=== PATIENT | female | born 1995 | race Caucasian/White ===

== ENCOUNTER → 2017-08-20 09:14 | Outpatient (CLI) | payer BC, SELFPAY ==
[2017-08-20 10:12] LABS: Hemoglobin A1c 4.7 % (4.2-6.3)
[2017-08-20 10:23] LABS: hCG Titer Quant., Serum < 1 mIU/mL (<9 non-preg)
[2017-08-20 10:27] LABS: Estradiol 56.2 pg/mL; Free T3 2.9 pg/mL (2.18-3.98); T4 Free Direct 0.94 ng/dL (0.76-1.46); Thyroid Stim Hormone (TSH) 1.98 uIU/mL (0.358-3.74)
[2017-08-21 10:38] LABS: Progesterone Level 0.57 ng/mL (See Comment)
== END ==
PROVIDERS: Visit Provider Obstetrics & Gynecology
DX: N92.5 Other specified irregular menstruation (principal)
CPT/HCPCS: 36415; 82670; 83036; 84144; 84403; 84439; 84443; 84481; 84702

== ENCOUNTER → 2017-09-11 14:14 | Outpatient (CLI) | payer BC, SELFPAY ==
[2017-09-11 15:46] LABS: hCG Titer Quant., Serum < 1 mIU/mL (<9 non-preg)
== END ==
PROVIDERS: Visit Provider Obstetrics & Gynecology
DX: N92.5 Other specified irregular menstruation (principal)
CPT/HCPCS: 36415; 84702

== ENCOUNTER → 2018-04-02 11:13 | Outpatient (CLI) | payer BC, SELFPAY ==
[2018-04-02 17:11] LABS: hCG Titer Quant., Serum 9770 mIU/mL (<9 non-preg)
== END ==
PROVIDERS: Visit Provider Obstetrics & Gynecology
DX: O20.0 Threatened abortion (principal); Z3A.00 Weeks of gestation of pregnancy not specified
CPT/HCPCS: 36415; 84702

== ENCOUNTER → 2018-06-28 11:33 | Outpatient (CLI) | payer BC, SELFPAY ==
[2018-06-28 13:45] LABS: hCG Titer Quant., Serum 2667 mIU/mL (<9 non-preg)
[2018-06-28 17:30] LABS: Chlamydia Trachomatis by PCR Negative (Negative); Neisserai gonorrhoeae by PCR Negative (Negative); Probe Check PASS; Sample Adequacy Control PASS; Specimen Processing Control PASS
[2018-07-01 08:00] LABS: HPV Reflexed? NOT INDICATED
== END ==
PROVIDERS: Visit Provider Obstetrics & Gynecology
DX: Z12.4 Encounter for screening for malignant neoplasm of cervix (principal); Z11.3 Encounter for screening for infections with a predominantly sexual mode of transmission
CPT/HCPCS: 36415; 84702; 84703; 87491; 87591; 88175; G0145

== ENCOUNTER → 2018-06-30 10:48 | Outpatient (CLI) | payer BC, SELFPAY ==
[2018-06-30 14:26] LABS: hCG Titer Quant., Serum 6042 mIU/mL (<9 non-preg)
== END ==
PROVIDERS: Visit Provider Obstetrics & Gynecology
DX: Z34.90 Encounter for supervision of normal pregnancy, unspecified, unspecified trimester (principal)
CPT/HCPCS: 36415; 84702

== ENCOUNTER → 2018-07-12 13:27 | Outpatient (CLI) | payer BC, MEDICAID, SELFPAY ==
[2018-07-12 13:46] VITALS: BP 115/66; PULSE 73; RESP 16; TEMP 36.8; O2SAT 99; BMI 25.9
== END ==
PROVIDERS: Visit Provider Obstetrics & Gynecology
DX: R11.10 Vomiting, unspecified (principal)
CPT/HCPCS: 96365; 96366 ×2; A4216

== ENCOUNTER → 2018-07-19 14:42 | Outpatient (CLI) | payer BC, SELFPAY ==
[2018-07-12 13:46] VITALS: BMI 25.9
[2018-07-19 16:55] LABS: Absolute Neutrophil Count 9.1 X10^3/uL (2.0-7.7); Basophil# 0.01 X10^3/uL; Basophil% 0.1 % (0-1); Eosinophil# 0.13 X10^3/uL; Eosinophils% 1.2 % (0-5); Hematocrit 40.1 % (37-47); Hemoglobin 13.9 g/dl (12.0-15.0); Lymphocyte % 12.5 % (19-41); Mean Corp Hgb Conc 34.7 g/gl (32-36); Mean Corpuscular Hgb 30.8 pg (27.0-32.0); Mean Corpuscular Volume 88.9 fL (81-99); Mean Platelet Vol. 10.6 fl (6.2-12.0); Monocyte# 0.62 X10^3/uL; Monocyte% 5.5 % (0-10); Neutrophil # 9.06 X10^3/uL (2.7-7.7); Neutrophil % 80.5 % (47-70); Platelet Count 308 K/mm3 (150-450); RBC Distribution Width CV 12.6 % (11.6-14.6); RBC Distribution Width SD 40.3 fl (35.1-43.9); Red Blood Count 4.51 M/mm3 (4.2-5.4); White Blood Count 11.2 K/mm3 (4.4-11.0)
[2018-07-19 16:57] LABS: Amphetamine Urine VISTA NEGATIVE (<1000 ng/mL); Barbiturate Urine VISTA NEGATIVE (< 200 ng/mL); Benzodiazepine Urine VISTA NEGATIVE (< 200 ng/mL); Cocaine Urine VISTA NEGATIVE (< 300 ng/mL); Ecstacy Urine VISTA NEGATIVE (< 500 ng/mL); Methadone Urine VISTA NEGATIVE (< 300 ng/mL); PCP Urine VISTA NEGATIVE (< 25 ng/mL); THC Urine VISTA NEGATIVE (< 50 ng/mL); Vista UDS pH Range 6
[2018-07-19 17:01] LABS: Thyroid Stim Hormone (TSH) 1.56 uIU/mL (0.358-3.74)
[2018-07-19 17:05] LABS: POSITIVE COUNT NO; POSITIVE DIFFERENTIAL NO; POSITIVE MORPHOLOGY NO
[2018-07-19 17:10] LABS: Color, Urine Yellow (Yellow); Glucose, Dipstick Normal (Normal); Ketone-Dipstick 50 mg/dl (Negative); Leukocyte Esterase-Dipstick Negative /ul (Negative); Nitrite-Dipstick Negative (Negative); Occult Blood-Urine Negative /ul (Negative); Protein-Dipstick Negative (Negative); Specific Gravity, Urine 1.015 (1.002-1.030); Urine Bilirubin Dipstick Negative (Negative); Urine Clarity Clear (Clear); Urine Urobilinogen Normal (Normal)
[2018-07-19 17:45] LABS: HIV - WCH Non-Reactive (Nonreactive); Rubella IgG 86.9 IU/mL
[2018-07-21 12:23] LABS: HEPATITIS B SURFACE AG Negative (Negative); Hep C Antibodies <0.1 s/co ratio (0.0-0.9)
[2018-07-23 03:11] LABS: Prenatal RPR NONREACTIVE (NONREACTIVE)
== END ==
PROVIDERS: Visit Provider Obstetrics & Gynecology
DX: Z34.81 Encounter for supervision of other normal pregnancy, first trimester (principal)
CPT/HCPCS: 36415; 80307; 81002; 84443; 85025; 86703; 86762; 86803; 87340

== ENCOUNTER 2018-08-05 15:46 | Emergency (ER) | payer BC, MEDICAID, SELFPAY ==
[2018-07-12 13:46] VITALS: BMI 25.9
[2018-08-05 15:47] VITALS: BP 122/75; PULSE 111; RESP 18; TEMP 36.3; O2SAT 99; BMI 26.9
[2018-08-05] MEDS: 0.9% Normal Saline 1,000 ML 1000 ML IV (16:34)
[2018-08-05] MEDS: proMETHazine 25 MG/ML Syringe 6.25 MG IV (16:36)
[2018-08-05 16:44] LABS: AST(SGOT) 15 U/L (15-37); Alanine Aminotransfer ALT/SGPT 15 U/L (13-56); Albumin, Serum 4.1 g/dL (3.2-5.0); Alkaline Phosphatase 54 U/L (45-117); Anion Gap 10 (5-15); BUN 8 mg/dL (7-18); BUN/Creat Ratio 12.5 RATIO (10-20); Calcium,Total 9.6 mg/dL (8.5-10.1); Chloride 107 mmol/L (98-107); Creatinine, Serum 0.64 mg/dL (0.55-1.02); EST Glomerular Filtration Rate 122 mL/min (>60); Est Glom Filt Rate - Afr Amer 148 mL/min (>60); Estimated Creatinine Clearance 134.08 ml/min; Glucose 77 mg/dL (74-106); Potassium 3.3 mmol/L (3.5-5.1); Protein, Total 8.1 g/dL (6.4-8.2); Sodium Level 138 mmol/L (136-145)
[2018-08-05 17:00] LABS: Absolute Lymphocyte Count 0.87 X10^3/ul (0.83-4.51); Absolute Neutrophil Count 11.3 X10^3/uL (2.0-7.7); Basophil# 0.01 X10^3/uL; Basophil% 0.1 % (0-1); Eosinophils% 0.8 % (0-5); Hematocrit 42.6 % (37-47); Hemoglobin 15.2 g/dl (12.0-15.0); Lymphocyte # 0.87 X10^3/ul (4.0); Lymphocyte % 6.8 % (19-41); Mean Corp Hgb Conc 35.7 g/gl (32-36); Mean Corpuscular Hgb 31.1 pg (27.0-32.0); Mean Corpuscular Volume 87.3 fL (81-99); Mean Platelet Vol. 10.9 fl (6.2-12.0); Monocyte# 0.43 X10^3/uL; Monocyte% 3.4 % (0-10); Neutrophil # 11.31 X10^3/uL (2.7-7.7); Neutrophil % 88.6 % (47-70); Platelet Count 303 K/mm3 (150-450); RBC Distribution Width CV 12.5 % (11.6-14.6); RBC Distribution Width SD 38.8 fl (35.1-43.9); Red Blood Count 4.88 M/mm3 (4.2-5.4); White Blood Count 12.8 K/mm3 (4.4-11.0)
[2018-08-05 17:09] LABS: POSITIVE COUNT NO; POSITIVE DIFFERENTIAL NO; POSITIVE MORPHOLOGY NO
[2018-08-05 17:48] LABS: Color, Urine Yellow (Yellow); Glucose, Dipstick Normal (Normal); Leukocyte Esterase-Dipstick 25 /ul (Negative); Nitrite-Dipstick Negative (Negative); Occult Blood-Urine Negative /ul (Negative); Protein-Dipstick 30 mg/dl (Negative); Urine Bilirubin Dipstick Negative (Negative); Urine Clarity Clear (Clear); Urine Urobilinogen 1 mg/dl (Normal)
[2018-08-05 17:49] LABS: Ketone-Dipstick 150 mg/dl (Negative)
--- NOTE | 2018-08-05 18:56 | ED.DCSUM_ITS ---
- ER Visit Summary Date of Service: 08/05/18 Chief Complaint: Nausea and vomiting History of Present Illness: The patient is a 22 F who presents with nausea and vomiting that has been waxing and waning over the past 4 weeks. Patient states she is approximately 10 weeks and 5 days . Patient states she has Zofran at home which has not been helping. Patient states she has some diffuse cramping in her abdomen. Patient also states she has some burning in her abdomen. Patient denies any vaginal bleeding. Patient denies any diarrhea, melena, or hematochezia. Patient denies any hematemesis or coffee-ground emesis. Patient denies any urinary complaints. Physical Examination: Vital signs are stable except for mild tachycardia of 111. Patient is afebrile. Patient is in no acute distress. Oral mucosa is pink and moist. Neck is supple. Trachea is midline. There is no JVD noted. Heart was regular rate and rhythm. Lungs are clear and equal bilateral. Abdomen is soft. Bowel sounds are normal. There is mild upper abdominal tenderness. There is no guarding noted. Skin is warm dry. Cranial nerves II through XII are intact. There are no focal motor or sensory deficits noted. The remaining physical exam is within normal limits. Test Results: CBC showed a mild leukocytosis of 12.8. Potassium was 3.3. Comprehensive metabolic profile was otherwise within normal limits. Urinalysis was normal. Emergency Department Course and Treatment: Patient was given IV fluids and Phenergan here. Patient was feeling somewhat better on reevaluation. Patient was given a prescription for Phenergan suppositories. Patient was instructed to follow-up with her MEMBERSHIP ASSISTANT in 5-7 days. Patient understood and was agreeable with the plan. All questions were answered. Disposition: Discharge home Impression: Nausea and vomiting This note was generated with [employer] (Droppy) dictation software. It may contain incorrect words, spelling, and punctuation that were not noted in review of the chart prior to signing ED Disposition - Plan for ED Patient: Disposition: Home or Assisted Living Instructions: ED Nausea Vomiting Prescriptions: proMETHazine suppository [Phenergan Suppository] 25 mg RECTAL Q6H PRN PRN #12 suppos. PRN Reason: Nausea Referrals: [facility] Doctor,Out of [Primary Care Provider] - 5-7 Days
[2018-08-05 19:17] VITALS: BP 114/79; PULSE 72; RESP 16; O2SAT 99
== END 2018-08-05 19:18 | disposition home or self-care (01) ==
PROVIDERS: Emergency Provider Emergency Medicine
DX: O21.9 Vomiting of pregnancy, unspecified (principal); Z3A.10 10 weeks gestation of pregnancy
CPT/HCPCS: 80053; 81002; 85025; 96361; 96374; 99284; J7030; A4216

== ENCOUNTER 2018-10-28 19:45 | Outpatient (CLI) | payer BC, MEDICAID, SELFPAY ==
[2018-10-28 20:17] VITALS: BMI 28.4
[2018-10-28 20:31] LABS: Mucous, Urine 0 SEEN /hpf (<or=2+)
[2018-10-28 20:45] LABS: Color, Urine Yellow (Yellow); Glucose, Dipstick Normal (Normal); Ketone-Dipstick Negative (Negative); Leukocyte Esterase-Dipstick Negative /ul (Negative); Nitrite-Dipstick Negative (Negative); Occult Blood-Urine Negative /ul (Negative); Protein-Dipstick Negative (Negative); Specific Gravity, Urine 1.015 (1.002-1.030); Urine Bilirubin Dipstick Negative (Negative); Urine Clarity Clear (Clear); Urine Urobilinogen Normal (Normal)
[2018-10-28 21:01] LABS: Bacteria 3+ /hpf (None Seen); Red Blood Cells-Urine 0-5 SEEN /hpf (0-5); Squamous Epithelial Cells - UA 0-5 SEEN /hpf (5-10); White Blood Cells 0-5 SEEN /hpf (0-5)
--- NOTE | 2018-11-01 22:08 | OB.TRI.HP_ITS ---
History of Present Illness Was patient seen by the physician?: No Reason For Visit: ABDOMINAL PAIN Date of Service: 10/28/18 Final SANDY: 02/27/19 Final SANDY Source: US <20 weeks Gestational age: 22 Weeks and 4 Days History of Present Illness: 22+ week intrauterine presents with right-sided abdominal pain. This pain is noted primarily when she moves around. Patient is noting positive movement. Denies any vaginal bleeding. Allergies No Known Allergies Allergy (Verified 10/28/18 20:22) Laboratory Studies: Laboratory Tests 10/28/18 Range/Units 20:15 Urine Color Yellow (Yellow) Urine Clarity Clear (Clear) Urine pH 7.0 (5.0 - 8.0) Ur Specific [place] 1.015 (1.002-1.030) Urine Protein Negative (Negative) mg/dl Urine Glucose (UA) Normal (Normal) mg/dl Urine Ketones Negative (Negative) mg/dl Urine Occult Blood Negative (Negative) /ul Urine Nitrite Negative (Negative) Urine Bilirubin Negative (Negative) mg/dL Urine Urobilinogen Normal (Normal) mg/dl Ur Leukocyte Esterase Negative (Negative) /ul Urine RBC 0-5 SEEN (0-5) /hpf Urine WBC 0-5 SEEN (0-5) /hpf Ur Squamous Epith Cells 0-5 SEEN (5-10) /hpf Urine Bacteria 3+ (None Seen) /hpf Urine Mucus 0 SEEN (<or=2+) /hpf NST - FHR Rate Baby A Uterine Activity:: No contractions were noted on the monitor. Positive heart tones were noted. Impression/Plan 22+ week intrauterine with right round ligament discomfort. Discussed Tylenol use, heating pads and that pain should resolve over the next several days. Patient is to call if pain worsens significantly. Denies any nausea, vomiting, diarrhea, fevers.
== END 2018-10-28 20:58 | disposition home or self-care (01) ==
LOC: WPOUT 19:55 → OBT 19:56
PROVIDERS: Visit Provider Obstetrics & Gynecology
DX: O26.892 Other specified pregnancy related conditions, second trimester (principal); R10.9 Unspecified abdominal pain; Z3A.22 22 weeks gestation of pregnancy
CPT/HCPCS: 59025; 59050; 81001; 87086; 99218; G0378

== ENCOUNTER → 2018-12-06 | Outpatient (CLI) | payer BC, SELFPAY ==
[2018-12-06 16:10] LABS: Glucose Challenge Gest 1H 50g 113 mg/dL (70-140)
[2018-12-06 16:23] LABS: Hematocrit 38.6 % (37-47); Hemoglobin 13.4 g/dl (12.0-15.0); Mean Corp Hgb Conc 34.7 g/gl (32-36); Mean Corpuscular Hgb 31.1 pg (27.0-32.0); Mean Corpuscular Volume 89.6 fL (81-99); Mean Platelet Vol. 10.8 fl (6.2-12.0); Platelet Count 252 K/mm3 (150-450); RBC Distribution Width SD 41.9 fl (35.1-43.9); Red Blood Count 4.31 M/mm3 (4.2-5.4); White Blood Count 12.8 K/mm3 (4.4-11.0)
[2018-12-06 16:47] LABS: Scan Indicated on CBC? Y/N NO
== END | disposition home or self-care (01) ==
LOC: WOBLAB 13:56
PROVIDERS: Visit Provider Obstetrics & Gynecology
DX: Z34.83 Encounter for supervision of other normal pregnancy, third trimester (principal)
CPT/HCPCS: 36415; 82950; 85027

== ENCOUNTER 2018-12-16 01:30 | Outpatient (CLI) | payer BC, MEDICAID, SELFPAY ==
[2018-12-16 02:49] VITALS: BMI 31.5
[2018-12-16 03:27] LABS: Mucous, Urine 0 SEEN /hpf (<or=2+)
[2018-12-16 03:38] LABS: Color, Urine Yellow (Yellow); Glucose, Dipstick Normal (Normal); Ketone-Dipstick Negative (Negative); Leukocyte Esterase-Dipstick Negative /ul (Negative); Nitrite-Dipstick Negative (Negative); Occult Blood-Urine 150 /ul (Negative); Protein-Dipstick 15 mg/dl (Negative); Urine Bilirubin Dipstick Negative (Negative); Urine Clarity Sl. Cloudy (Clear); Urine Urobilinogen Normal (Normal)
[2018-12-16 03:44] LABS: Bacteria 2+ /hpf (None Seen); Red Blood Cells-Urine 10-25 SEEN /hpf (0-5); Squamous Epithelial Cells - UA 0-5 SEEN /hpf (5-10); White Blood Cells 5-10 SEEN /hpf (0-5)
--- NOTE | 2018-12-16 08:11 | OB.TRI.HP_ITS ---
- Problem List (1) 29 weeks gestation of Status: Acute (2) Spotting affecting in third trimester Status: Acute History of Present Illness Date of Service: 12/16/18 Was patient seen by the physician?: No Reason For Visit: BLEEDING Final SANDY: 02/27/19 Final SANDY Source: US <20 weeks Gestational age: 29 Weeks and 4 Days Allergies No Known Allergies Allergy (Verified 10/28/18 20:22) Laboratory Studies: Laboratory Tests 12/16/18 Range/Units 03:20 Urine Color Yellow (Yellow) Urine Clarity Sl. Cloudy (Clear) Urine pH 7.0 (5.0 - 8.0) Ur Specific [place] 1.010 (1.002-1.030) Urine Protein 15 H (Negative) mg/dl Urine Glucose (UA) Normal (Normal) mg/dl Urine Ketones Negative (Negative) mg/dl Urine Occult Blood 150 H (Negative) /ul Urine Nitrite Negative (Negative) Urine Bilirubin Negative (Negative) mg/dL Urine Urobilinogen Normal (Normal) mg/dl Ur Leukocyte Esterase Negative (Negative) /ul Urine RBC 10-25 SEEN (0-5) /hpf Urine WBC 5-10 SEEN (0-5) /hpf Ur Squamous Epith Cells 0-5 SEEN (5-10) /hpf Urine Bacteria 2+ (None Seen) /hpf Urine Mucus 0 SEEN (<or=2+) /hpf NST - FHR Rate Baby A Baseline: 140 Variability:: Moderate Accelerations:: 10 x 10 Decelerations:: None NST Reactive:: Yes, Appropriate for gestational age FHR Category:: Category I Uterine Activity:: 0 Impression/Plan 23yo @ 29 3/7wga with reactive NST, AGA False labor UCx sent d/c home
== END 2018-12-16 04:50 | disposition home or self-care (01) ==
PROVIDERS: Visit Provider Obstetrics & Gynecology
DX: O47.03 False labor before 37 completed weeks of gestation, third trimester (principal); Z3A.29 29 weeks gestation of pregnancy
CPT/HCPCS: 59025; 59050; 81001; 87086; 87088; 99218; G0378

== ENCOUNTER → 2019-01-03 | Outpatient (CLI) | payer BC, MEDICAID, SELFPAY ==
[2018-12-16 02:49] VITALS: BMI 31.5
[2019-01-03 15:01] LABS: Fetal Fibronectin Negative
== END | disposition home or self-care (01) ==
LOC: WOBLAB 14:25
PROVIDERS: Visit Provider Obstetrics & Gynecology
DX: R25.2 Cramp and spasm (principal)
CPT/HCPCS: 82731

== ENCOUNTER 2019-01-27 15:50 | Outpatient (CLI) | payer BC, MEDICAID, SELFPAY ==
[2019-01-27 17:26] VITALS: BMI 32.4
--- NOTE | 2019-01-31 17:53 | OB.TRI.NOTE ---
History of Present Illness Date of Service: 01/27/19 Was patient seen by the physician?: No Reason For Visit: R/O LABOR Date of Service: 01/27/19 Final SANDY: 02/27/19 Final SANDY Source: US <20 weeks Gestational age: 35 Weeks and 4 Days History of Present Illness: 23 yo female at 35 4/7 wk for labor check with CC of abdominal discomfort. Allergies No Known Allergies Allergy (Verified 10/28/18 20:22) NST - FHR Rate Baby A Baseline: 130-140 avg with accels 160s Variability:: Moderate Accelerations:: 15 x 15 Decelerations:: None NST Reactive:: Yes, Appropriate for gestational age FHR Category:: Category I Uterine Activity:: UCs irregular with intervening uterine irritability. Impression/Plan 35 4/7wk False labor NST reactive UCs irregular Home Rest, tylenol, warm bath. Return if inc s/sx of labor Keep next ofc appt as planned.
== END 2019-01-27 17:45 | disposition home or self-care (01) ==
LOC: WPOUT 15:53 → WP 15:54
PROVIDERS: Referring Provider Obstetrics & Gynecology; Visit Provider Obstetrics & Gynecology
DX: O47.03 False labor before 37 completed weeks of gestation, third trimester (principal); Z3A.35 35 weeks gestation of pregnancy
CPT/HCPCS: 59025; 59050; 99218; G0378

== ENCOUNTER → 2019-02-03 11:57 | Outpatient (CLI) | payer BC, MEDICAID, SELFPAY ==
[2019-01-27 17:26] VITALS: BMI 32.4
== END ==
PROVIDERS: Visit Provider Obstetrics & Gynecology
DX: Z36.85 Encounter for antenatal screening for Streptococcus B (principal)
CPT/HCPCS: 87081

== ENCOUNTER 2019-03-04 07:05 | Inpatient (IN) | payer BC, MEDICAID, SELFPAY ==
[2019-03-04] MEDS: Lactated Ringers 1,000 ML 50 ML IV ×3 (07:45→18:39)
[2019-03-04 07:46] VITALS: BMI 34.0
[2019-03-04 08:28] LABS: Absolute Lymphocyte Count 1.28 X10^3/uL (0.83-4.51); Absolute Neutrophil Count 8.1 X10^3/uL (2.0-7.7); Basophil# 0.02 X10^3/uL; Basophil% 0.2 % (0-1); Eosinophil# 0.12 X10^3/uL; Eosinophils% 1.2 % (0-5); Hematocrit 36.9 % (37-47); Hemoglobin 12.9 g/dL (12.0-15.0); Lymphocyte # 1.28 X10^3/ul (4.0); Lymphocyte % 12.5 % (19-41); Mean Corpuscular Hgb 30.9 pg (27.0-32.0); Mean Corpuscular Volume 88.5 fL (81-99); Mean Platelet Vol. 11.4 fl (6.2-12.0); Monocyte% 6.8 % (0-10); NRBC Flagged by Analyzer 0 % (0-5); Neutrophil # 8.06 X10^3/uL (2.7-7.7); Neutrophil % 78.8 % (47-70); Platelet Count 203 K/mm3 (150-450); RBC Distribution Width CV 13.1 % (11.6-14.6); RBC Distribution Width SD 42.3 fl (35.1-43.9); Red Blood Count 4.17 M/mm3 (4.2-5.4); White Blood Count 10.2 K/mm3 (4.4-11.0)
[2019-03-04] MEDS: Oxytocin 30 units/NS 500 ml 30 UNITS/500 ML IV.SOLN IV (09:25)
--- NOTE | 2019-03-04 13:10 | PCM.HPOB.BLA ---
History and Physical Date of Admission: 03/04/19 [facility] History of this : 23 yo female Ab1 with EDC 02/27/2019 by Ultrasound, presents to Labor and Delivery for elective induction of labor at 40 5/7 wk for social indication only. care remarkable for 1.) Decline AFP(also CF) at NOB 2.) hx of ASTHMA. Pertinent Past Medical History: asthma Allergies: NKDA Medications: During - Symbicort 160 mcg-4.5 mcg/actuation HFA aerosol inhaler; Zofran 8 mg tablet; Phenergan 25 mg rectal suppository; multivitamin tablet; Colace 100 mg capsule Review of Systems: Non-contributory PHYSICAL EXAMINATION General Appearance: 23 yo female in no acute distress Vital Signs: AF, VSS Heart: RRR without rubs or gallops Lungs: CTA x 2 Breasts: deferred Abdomen: gravid Pelvis: Cervix: Presentation: cephalic Station: Fetus: Size: AGA Movement: present Heart: present Impression /Plan: Intrauterine . Presents for induction at 40 5/7 wk EGA Declines AROM. Wants only pitocin. Started pitocin induction.
--- NOTE | 2019-03-04 17:37 | PCM.PN.OB ---
Subjective: Mild discomfort with contractions; requests AROM; parents, spouse bedside and supportive Objective: AVSS FHTS: 155 baseline, moderate variability, occasional variables UCS; Q 2-3 Cervix: 4/90/-2,soft,anterior Pitocin at 10mu - Physical Exam General: Alert, Oriented x3, Cooperative, No apparent distress HEENT: PERRLA, EOMI Oral: Moist Mucosa Neck: Supple Neurological: Cranial nerves II-XII grossly intact Psych/Mental Status: Normal Affect, Appropriate, Alert and oriented to time, place, person, mood and affect Weight: 217 lb Body Mass Index (BMI) 34.0 Intake and Output for Last 24 Hours 03/02/19 03/03/19 03/04/19 23:59 23:59 23:59 Intake Total 37.37 / 37.37 Balance 37.37 / 37.37 Laboratory Tests Past 24 Hrs 03/04/19 03/04/19 07:45 07:45 WBC 10.2 RBC 4.17 L Hgb 12.9 Hct 36.9 L MCV 88.5 MCH 30.9 MCHC 35.0 RDW Std Deviation 42.3 RDW Coeff of Carmela 13.1 Plt Count 203 MPV 11.4 Immature Gran % (Auto) 0.500 Neut % (Auto) 78.8 H Lymph % (Auto) 12.5 L [place] % (Auto) 6.8 Eos % (Auto) 1.2 Baso % (Auto) 0.2 Absolute Neuts (auto) 8.1 H Absolute Lymphs (auto) 1.28 Nucleated RBC % 0 Blood Type A POSITIVE Antibody Screen NEGATIVE Medical Necessity - Tobacco Use Smoking Status: Never smoker Assessment/Plan All Active Problems 29 weeks gestation of (Acute) Spotting affecting in third trimester (Acute) Assessment: 23 yo female Ab1 with EDC 02/27/2019 by Ultrasound, elective IOL at 40 5/7 wk for social indication only GBS negative Active labor Cat 2 FHTs Plan: AROMed for small amount clear fluid Continuous EFM Titrate pitocin to maintain adequate contraction pattern Epidural at pt request Close observation Anticipate vaginal delivery .
[2019-03-04] MEDS: Acetaminophen 325 MG Tablet PO (22:05)
--- NOTE | 2019-03-04 23:43 | PN.OBGYN_ITS ---
Subjective: This a late entry for 03/04/2019, 2049 Rcvd call from Viviana RN - Pt rating pain 10, like menstrual cramps; pt has been up walking, and sitting on ball Objective: Per RN, pt has had an outlier BP of 138/104, followed by BP of 126/90; pt is asymptomatic of elevated BPs VE per RN = no change FHTs: 145 baseline, minimal to moderate variability, no accels or decels UCs: Q 2-3 Pitocin now at14 mu - Physical Exam Weight: 217 lb Body Mass Index (BMI) 34.0 Intake and Output for Last 24 Hours 03/02/19 03/03/19 03/04/19 23:59 23:59 23:59 Intake Total 1226.37 / 1226.37 Balance 1226.37 / 1226.37 Laboratory Tests Past 24 Hrs 03/04/19 03/04/19 07:45 07:45 WBC 10.2 RBC 4.17 L Hgb 12.9 Hct 36.9 L MCV 88.5 MCH 30.9 MCHC 35.0 RDW Std Deviation 42.3 RDW Coeff of Carmela 13.1 Plt Count 203 MPV 11.4 Immature Gran % (Auto) 0.500 Neut % (Auto) 78.8 H Lymph % (Auto) 12.5 L [place] % (Auto) 6.8 Eos % (Auto) 1.2 Baso % (Auto) 0.2 Absolute Neuts (auto) 8.1 H Absolute Lymphs (auto) 1.28 Nucleated RBC % 0 Blood Type A POSITIVE Antibody Screen NEGATIVE Medical Necessity - Tobacco Use Smoking Status: Never smoker Assessment/Plan All Active Problems 29 weeks gestation of (Acute) Spotting affecting in third trimester (Acute) Assessment: 23 yo female Ab1 with EDC 02/27/2019 by Ultrasound, elective IOL at 40 5/7 wk for social indication only GBS negative Isolated elevated BP Slowly progressing labor Cat 2 FHTs Plan: Continue titrating pitocin to achieve adequate labor Continuous EFM Frequent BP monitoring, provider to be called if elevations persist Encourage walking, position changes, etc. Will recheck cervix in approx 4 hours or PRN
[2019-03-05] VITALS (18 sets, daily range): BP systolic 114–150; BP diastolic 69–99; PULSE 82–115; RESP 16–18; TEMP 35.8–36.7; O2SAT 98–100
--- NOTE | 2019-03-05 01:55 | PN.OBGYN_ITS ---
Subjective: Sleeping; no epidural; and parents in room, supportive Objective: AVSS FHTs:135 baseline, minimal to moderate variability, tracing broken, questionable accels,no decels UCs: irregular, Q 1-6 minutes Pitocin:20mu Cervix: minimal change per RN - Physical Exam Weight: 217 lb Body Mass Index (BMI) 34.0 Intake and Output for Last 24 Hours 03/03/19 03/04/19 03/05/19 23:59 23:59 23:59 Intake Total 1246.64 / 1246.64 201.83 / 201.83 Output Total 350 / 350 Balance 896.64 / 896.64 201.83 / 201.83 Laboratory Tests Past 24 Hrs 03/04/19 03/04/19 07:45 07:45 WBC 10.2 RBC 4.17 L Hgb 12.9 Hct 36.9 L MCV 88.5 MCH 30.9 MCHC 35.0 RDW Std Deviation 42.3 RDW Coeff of Carmela 13.1 Plt Count 203 MPV 11.4 Immature Gran % (Auto) 0.500 Neut % (Auto) 78.8 H Lymph % (Auto) 12.5 L [place] % (Auto) 6.8 Eos % (Auto) 1.2 Baso % (Auto) 0.2 Absolute Neuts (auto) 8.1 H Absolute Lymphs (auto) 1.28 Nucleated RBC % 0 Blood Type A POSITIVE Antibody Screen NEGATIVE Medical Necessity - Tobacco Use Smoking Status: Never smoker Assessment/Plan All Active Problems 29 weeks gestation of (Acute) Spotting affecting in third trimester (Acute) Assessment: 23 yo female Ab1 with EDC 02/27/2019 by Ultrasound, elective IOL at 40 5/7 wk for social indication only GBS negative Protracted labor AROM >6.5 hours Cat 2 FHTs Plan: Place FSE & IUPC Rest pitocin x 1/2 hours, restart at half and increase by 2mu per 30 minutes to achieve adequate labor Frequent position changes, peanut ball, etc Recheck cervix in 2 hours
--- NOTE | 2019-03-05 02:46 | PN.OBGYN_ITS ---
Subjective: Reports minimal discomfort with contractions Objective: AVSS FHTs:150 baseline, minimal variability, no accels or decels UCs: Q 3-4 Cervix 4/70/-2 - Physical Exam Weight: 217 lb Body Mass Index (BMI) 34.0 Intake and Output for Last 24 Hours 03/03/19 03/04/19 03/05/19 23:59 23:59 23:59 Intake Total 1246.64 / 1246.64 701.83 / 701.83 Output Total 350 / 350 150 / 150 Balance 896.64 / 896.64 551.83 / 551.83 Laboratory Tests Past 24 Hrs 03/04/19 03/04/19 07:45 07:45 WBC 10.2 RBC 4.17 L Hgb 12.9 Hct 36.9 L MCV 88.5 MCH 30.9 MCHC 35.0 RDW Std Deviation 42.3 RDW Coeff of Carmela 13.1 Plt Count 203 MPV 11.4 Immature Gran % (Auto) 0.500 Neut % (Auto) 78.8 H Lymph % (Auto) 12.5 L [place] % (Auto) 6.8 Eos % (Auto) 1.2 Baso % (Auto) 0.2 Absolute Neuts (auto) 8.1 H Absolute Lymphs (auto) 1.28 Nucleated RBC % 0 Blood Type A POSITIVE Antibody Screen NEGATIVE Medical Necessity - Tobacco Use Smoking Status: Never smoker Assessment/Plan All Active Problems 29 weeks gestation of (Acute) Spotting affecting in third trimester (Acute) Assessment: 23 yo female Ab1 with EDC 02/27/2019 by Ultrasound, elective IOL at 40 5/7 wk for social indication only GBS negative Protracted labor AROM >9 hours Cat 2 FHTs Plan: Attempts x [address] IUPC and FSE unsuccessful Will proceed with plan to restart pitocin at 10mu after a 1/2 hour rest Recheck cervix in 2 hours or PRN, update MD if no change
[2019-03-05] MEDS: Mag Hydrox/Al Hydrox/Simeth 30 ML UDC PO (02:55)
--- NOTE | 2019-03-05 03:40 | PCM.PN.BLA ---
Progress Note 40 6/7 wk Induction. has been on Pitocin since yesterday AM. AROM allowed by patient at approx 1730 PM last night Feeling a little cramping AVSS. Pitocin had been up to 18-20 mIu/min now at 12 mIU/min EFM Reassuring 130-140s with accels. UCs noted q 2-3 mins A/P: 40 6/7 wk induction Failing induction thus far. Advised pt and family of possible C section for failed induction. Criteria would be 24 hr after AROM with pitocin. This would be at 1730 today (approx) Encouraged rest. Not that uncomfortable at present.
--- NOTE | 2019-03-05 07:54 | PN.OBGYN_ITS ---
Subjective: Feeling mild discomfort, becoming discouraged Objective: FHTs UCs: Cervix: Pitocin at 18mu - Physical Exam General: Alert, Oriented x3, Cooperative, No apparent distress Weight: 217 lb Body Mass Index (BMI) 34.0 Intake and Output for Last 24 Hours 03/03/19 03/04/19 03/05/19 23:59 23:59 23:59 Intake Total 1246.64 / 1246.64 1473.26 / 1473.26 Output Total 350 / 350 650 / 650 Balance 896.64 / 896.64 823.26 / 823.26 Laboratory Tests Past 24 Hrs 03/04/19 03/04/19 07:45 07:45 WBC 10.2 RBC 4.17 L Hgb 12.9 Hct 36.9 L MCV 88.5 MCH 30.9 MCHC 35.0 RDW Std Deviation 42.3 RDW Coeff of Carmela 13.1 Plt Count 203 MPV 11.4 Immature Gran % (Auto) 0.500 Neut % (Auto) 78.8 H Lymph % (Auto) 12.5 L [place] % (Auto) 6.8 Eos % (Auto) 1.2 Baso % (Auto) 0.2 Absolute Neuts (auto) 8.1 H Absolute Lymphs (auto) 1.28 Nucleated RBC % 0 Blood Type A POSITIVE Antibody Screen NEGATIVE Medical Necessity - Tobacco Use Smoking Status: Never smoker Assessment/Plan All Active Problems 29 weeks gestation of (Acute) Spotting affecting in third trimester (Acute)
[2019-03-05] MEDS: Sodium Citrate/Citric Acid 30 ML UDC PO (09:41)
--- NOTE | 2019-03-05 09:46 | DCINST_ITS ---
Discharge Diet: No Restrictions Discharge Activity: May not drive while taking narcotic pain medications., May Shower, May Take a Tub Bath Return to work on:: 04/18/19 May resume sexual activity in: 4-6 weeks Lifting Restrictions: 20 pounds Additional Activity Instructions:: Nothing in the vagina for 4-6 weeks. You may return to work/school in 6 weeks. Change Dressing in (Days):: 14 Remove Dressing in (days):: 14 Cleanse incision/area with: Soap & Water, Keep Dressing Clean & Dry Additional Instructions: If you experience any of the following, contact your healthcare provider. * Bleeding that soaks a pad every hour for 2 hours * Fever 100.4 or higher * Unrelieved incision or abdominal pain * Swelling, redness, discharge or bleeding from your incision * Problems urinating (including inability to urinate or burning while urinating). * Visual changes * Severe headache * Flu-like symptoms * Pain or redness in one of both of your breasts * Pain, warmth, tenderness or swelling in your legs, especially the calf area * Frequent nausea and vomiting * Symptoms of depression or anxiety If you experience any of the following, call 911 or go to the nearest Emergency Room. * Chest pain * Problems breathing * Seizure activity * Partial or complete paralysis of a body part, slurred speech, weakness or drooping of the face, or a sudden inability to walk or hold your balance Allergies/Adverse Reactions: Allergies No Known Allergies Allergy (Verified 10/28/18 20:22) Medications to take at Discharge Vit No.130/Iron/Folic [ Tablet] 1 tab PO DAILY 10/28/18 Symbicort 80-4.5 Mcg Inhaler 10/28/18 Docusate Sodium [Colace] 100 mg PO BID #30 cap 03/05/19 Naproxen [Naprosyn] 250 - 500 mg PO TID PRN PRN #30 tab 03/05/19 Oxycodone [Oxyir] 5 mg PO Q6H PRN PRN 4 Days #15 tablet 03/05/19 The following prescriptions were given: Docusate Sodium [Colace] 100 mg PO BID #30 cap Transmission Status: Pending to [id number] Naproxen [Naprosyn] 250 - 500 mg PO TID PRN PRN #30 tab PRN Reason: Mild-Mod Pain (1-5/10) Transmission Status: Pending to [id number] Oxycodone [Oxyir] 5 mg PO Q6H PRN PRN 4 Days #15 tablet PRN Reason: Mod-Severe Pain (-03/03) Transmission Status: Sent to [id number] Follow-Up: Call to make an appointment with your doctor for an incision check in 1-2 weeks. You will also need a 6 week post- follow up appointment. Test results from this visit will be discussed in further detail at your follow- up appointment, if applicable. Please Follow Up With: Nyasia Jacobson MD - [phone] When: Call to make an appointment for an incision check in 2 weeks. Primary Care Physician: Ezequiel Shoemaker MD [Primary Care Provider] - Proposed Discharge Date: 03/08/19
[2019-03-05] MEDS: Methylergonovine 0.2 MG/ML Ampul IM (10:12)
[2019-03-05] MEDS: Cefazolin 2 GM in 0.9% Normal Saline 100 ML IV (10:31)
--- NOTE | 2019-03-05 10:37 | OP.PCM_ITS ---
Delivery Classification: WILMAR Final SANDY: 02/27/19 Final SANDY Source: US <20 weeks Gestational age: 40 Weeks and 6 Days equip maint eng: Ron Gustafson Type of Anesthesia:: Spinal - Dr Knight Date of Procedure: 03/05/19 Pre-Operative Diagnosis: 40 6/7 wk failed induction Post-Operative Diagnosis: Same Indications: failed induction Pitocin then AROM. Pt aware failed induction requires 24 hr pitocin and AROM with no change. Declines last 8 hr trial Indications for : Failed Induction Description of Procedure: Findings: At amniotomy, clear fluid was noted. [place] viable male in vertex presentation. Apgars 8/9, Baby weight: 10# 6 oz There was a normal appearing uterus, fallopian tubes and ovaries bilaterally. Narrative account: After the risks, benefits and alternatives of the procedure were reviewed with the patient, informed consent was obtained. The patient was taken to the Operating room with an IV running, and placed in a seated position on the operating table for placement of the spinal. Once the spinal had been administered, she was briefly frog-legged for Baez catheter placement, and vaginal vault prep, and then repositioned to dorsal supine position with leftward displacement of the uterus, and prepped and draped in the usual sterile fashion. Once the spinal was deemed adequate, a Pfannenstiel skin incision was created using the knife. The incision was carried down to the rectus fascia using the knife. The fascia was nicked in the midline. The fascial incision was extended bilaterally using curved Villarreal scissors. The superior aspect of the fascial incision was grasped with Melba clamps and tented up and the underlying rectus abdominal muscles were dissected free. In a similar manner, the inferior aspect of the facial incision was grasped with Melba clamps tented up and the underlying rectus abdominal muscles were dissected free. The rectus abdominis muscles were in the midline and the peritoneum was identified and entered by blunt dissection high in the incision. The peritoneum was stretched laterally and a bladder blade was inserted. A bladder flap was created along the lower uterine segment with Metzenbaum scissors . The uterine incision was then created using Metzenbaum scissors. The operators fingertips were used to extend the uterine incision by blunt dissection in a caudad- cephalad orientation . Clear fluid was noted at amniotomy. The vertex was then delivered atraumatically through the incision. The OP and nares were bulb suctioned on the abdomen. No nuchal cord was noted The shoulders delivered easily . The cord clamped x two and cut. And the was handed off to the nurse awaiting delivery after briefly showing him to his parents. The baby had a spontaneous, vigorous cry. The placenta was then delivered. The uterus was exteriorized and cleared of clots and debris . The uterine incision was repaired with 1 Vicryl in a running locked fashion. A second imbricating layer was then placed, using 1 Monocryl in running nonlocked fashion. Bovie cautery was used to treat any bleeding areas . Excellent hemostasis was noted. Bimanual massage was used as well as an IV push on Pitocin for mild uterine atony. Methergine 0.2 mg IM times one in L thigh also given for prophylaxis -- prolonged exposure to IV Pitocin, prolonged ROM and large for gestational age fetus. At this point the uterus was returned to the abdominal cavity. The gutters were cleared of clots and debris and the incision at the uterus was inspected. Excellent hemostasis was noted. A horizontal mattress stitch was placed at the Left uterine angle. The peritoneal edges and rectus muscles were reapproximated in the midline with a series of vertical mattress stitches of 1 Vicryl. Excellent hemostasis was noted at the subfascial space The fascia was closed in a running nonlocked fashion with a Stratofix. The Subcutaneous fatty tissue was Bovie cauterized as needed for hemostasis. This layer was then reapproximated in a single layer closure of running 3-0 Vicryl to eliminate space. The skin edges were closed in a Subcuticular stitch of 4-0 Monocryl. The incision was cleansed. Cavilon, Steristrips, and Mepilex dressing were applied to the skin . The patient was then transferred to the recovery room bed in stable condition after tolerating the procedure well. Sponge, lap, needle and instrument counts correct times two. Medications given preop and intraoperatively included: Ancef 2 gm IV and Azithromycin 500 mg IV times one were given international sales manager to the operating room. The patient also received Pitocin given IV after cord clamp, and Toradol 30 mg IV times one.., methergine 0.2 mg IM in L thigh. For a complete listing of medications given preop and intraoperatively, please see the anesthesia record. Amniotic Membrane Rupture Type: Artificial Amniotic Fluid Description: Clear Placenta Disposition: [facility] Drain: Baez to straight drain Fluids Replaced: LR Cord Entanglement: None Cord Vessel Description: 3 Vessels Esitmated Blood Loss (ml): 800 Infant Gender: Male - 10# 6 oz. (1 minute): 8 (5 minute): 9 Delayed cord clamping: No Antibiotic Given: Ancef 2 grams IV x1, Zithromax 500 mg/5 mL X1 Pt instructed on risks of surgery: Bleeding, Anesthesia Risks, Infection Complications: None - Admit VTE Documentation VTE Present on Admission: No VTE Mechan Device Prophylaxis: SCD's VTE Pharm Prophylaxis ordered?: No
[2019-03-05] MEDS: Oxytocin 30 units/NS 500 ml 30 UNITS/500 ML IV.SOLN 167 UNITS IV (11:05)
[2019-03-05 12:40] LABS: Absolute Lymphocyte Count 0.84 X10^3/uL (0.83-4.51); Absolute Neutrophil Count 15.5 X10^3/uL (2.0-7.7); Basophil# 0.02 X10^3/uL; Basophil% 0.1 % (0-1); Eosinophil# 0.04 X10^3/uL; Eosinophils% 0.2 % (0-5); Hematocrit 34.4 % (37-47); Hemoglobin 11.4 g/dL (12.0-15.0); Lymphocyte # 0.84 X10^3/ul (4.0); Lymphocyte % 4.9 % (19-41); Mean Corp Hgb Conc 33.1 g/dL (32-36); Mean Corpuscular Hgb 30.1 pg (27.0-32.0); Mean Corpuscular Volume 90.8 fL (81-99); Mean Platelet Vol. 11.2 fl (6.2-12.0); Monocyte# 0.73 X10^3/uL; Monocyte% 4.2 % (0-10); NRBC Flagged by Analyzer 0 % (0-5); Platelet Count 183 K/mm3 (150-450); RBC Distribution Width CV 13.2 % (11.6-14.6); RBC Distribution Width SD 43.8 fl (35.1-43.9); Red Blood Count 3.79 M/mm3 (4.2-5.4); White Blood Count 17.2 K/mm3 (4.4-11.0)
[2019-03-05] MEDS: Acetaminophen 500 MG Tablet 1000 MG PO (13:54)
[2019-03-05] MEDS: Lactated Ringers 1,000 ML 100 ML IV (14:15)
--- NOTE | 2019-03-05 16:31 | NURSING ---
1055 -During fundal check in room, 250ml blood expelled. Dr Jacobson notified and states to continue monitoring. 1115-post fundal check, pad weighed and total 116ml blood. 1130-post fundal check, pad weighed and total 63ml blood. 1200-post fundal check, pad weighed and total 52ml blood. Dr. Jacobson called and updated of total blood loss post [id number] and reviewed most recent VS and order for Methergine 0.2mg q6hrs PRN for bleeding obtained.
[2019-03-05] MEDS: Ketorolac 30 MG/ML Syringe IV (18:03)
[2019-03-05] MEDS: Prenatal Vits Tablet 1 TABLET PO (18:03)
[2019-03-06] VITALS (8 sets, daily range): BP systolic 118–127; BP diastolic 68–79; PULSE 92–111; RESP 14–18; TEMP 36.2–36.6; O2SAT 96–99
[2019-03-06] MEDS: Ketorolac 30 MG/ML Syringe IV ×3 (00:16→12:15)
[2019-03-06] MEDS: Lactated Ringers 1,000 ML 100 ML IV (00:16)
[2019-03-06] MEDS: 0.9% Saline Lock 10 ML Syringe IV ×4 (00:16→12:16)
[2019-03-06] MEDS: Ondansetron 4 MG/2 ML Vial IV (00:27)
[2019-03-06] MEDS: Nalbuphine 10 MG/ML Ampul 5 MG IV (04:59)
[2019-03-06 06:48] LABS: Hematocrit 27.2 % (37-47); Hemoglobin 9.4 g/dL (12.0-15.0); Mean Corp Hgb Conc 34.6 g/dL (32-36); Mean Corpuscular Hgb 31.1 pg (27.0-32.0); Mean Corpuscular Volume 90.1 fL (81-99); Mean Platelet Vol. 10.8 fl (6.2-12.0); Platelet Count 165 K/mm3 (150-450); RBC Distribution Width CV 13.4 % (11.6-14.6); RBC Distribution Width SD 43.5 fl (35.1-43.9); Red Blood Count 3.02 M/mm3 (4.2-5.4); White Blood Count 12.7 K/mm3 (4.4-11.0)
--- NOTE | 2019-03-06 07:34 | PCM.PN.OB ---
Subjective: POD#1 Primary C section. Failed induction. LGA Doing OK. Minimal pain but inc with movement. (May try abdominal binder) Breast feeding. - Physical Exam General: Alert, Oriented x3, Cooperative, No apparent distress HEENT: Atraumatic, EOMI Neck: Supple Abdomen: Soft - Fundus firm, minimally tender c/w postop status. Skin: Incision - Mepilex CDI. Neurological: Cranial nerves II-XII grossly intact Psych/Mental Status: Normal Affect Vital Signs Temp Pulse Resp BP Pulse Ox 97.3 F L 110 H 18 122/76 H 98 03/05/19 19:30 03/06/19 06:15 03/06/19 06:15 03/06/19 04:30 03/06/19 06:15 Oxygen Delivery Method Room Air Weight: 98.43 kg Body Mass Index (BMI) 34.0 Intake and Output for Last 24 Hours 03/04/19 03/05/19 03/06/19 23:59 23:59 23:59 Intake Total 1246.64 / 1246.64 3262.76 / 3262.76 1900 / 1900 Output Total 350 / 350 1650 / 1650 1650 / 1650 Balance 896.64 / 896.64 1612.76 / 1612.76 250 / 250 Laboratory Tests Past 24 Hrs 03/05/19 03/06/19 12:30 06:40 WBC 17.2 H 12.7 H RBC 3.79 L 3.02 L Hgb 11.4 L 9.4 L Hct 34.4 L 27.2 L MCV 90.8 90.1 MCH 30.1 31.1 MCHC 33.1 34.6 RDW Std Deviation 43.8 43.5 RDW Coeff of Carmela 13.2 13.4 Plt Count 183 165 MPV 11.2 10.8 Immature Gran % (Auto) 0.600 Neut % (Auto) 90.0 H Lymph % (Auto) 4.9 L [place] % (Auto) 4.2 Eos % (Auto) 0.2 Baso % (Auto) 0.1 Absolute Neuts (auto) 15.5 H Absolute Lymphs (auto) 0.84 Nucleated RBC % 0 Medical Necessity - Tobacco Use Smoking Status: Never smoker Assessment/Plan POD#1 Primary C section. Failed induction. LGA Stable postop. Increased diet and activity as tolerated. Begin po meds, D/C Baez for voiding trial later today. S/L IV for continued Toradol dosing. Continue routine care, assist prn.
[2019-03-06] MEDS: Docusate Sodium 100 MG Capsule PO ×2 (12:15→22:09)
[2019-03-06] MEDS: Prenatal Vits Tablet 1 TABLET PO (12:15)
[2019-03-06] MEDS: Naproxen 250 MG Tablet PO (18:06)
[2019-03-06] MEDS: oxyCODONE 5 MG Tablet PO (19:54)
[2019-03-07] MEDS: oxyCODONE 5 MG Tablet PO ×3 (00:59→19:49)
[2019-03-07 01:00] VITALS: BP 109/64; PULSE 94; RESP 18; TEMP 36.6
[2019-03-07] MEDS: Naproxen 250 MG Tablet PO ×2 (03:02→13:25)
--- NOTE | 2019-03-07 08:21 | PCM.PN.OB ---
Subjective: POD#2 Primary C/S failed induction sore. Has walked a little but not much and hopes to move around more today. Would like to stay. No concerns voiced otherwise. recommended abdominal binder and discussed ways to get into bed which may be more comfortable to execute - Physical Exam General: Alert, Oriented x3, Cooperative, No apparent distress HEENT: Atraumatic, EOMI Neck: Supple Abdomen: Soft - Fundus firm minimally tender at umbilicus Skin: Incision - Mepilex dressing CDI. Neurological: Cranial nerves II-XII grossly intact Psych/Mental Status: Normal Affect Vital Signs Temp Pulse Resp BP Pulse Ox 97.8 F 94 18 109/64 98 03/07/19 01:00 03/07/19 01:00 03/07/19 01:00 03/07/19 01:00 03/06/19 09:45 Oxygen Delivery Method Room Air Weight: 98.43 kg Body Mass Index (BMI) 34.0 Intake and Output for Last 24 Hours 03/05/19 03/06/19 03/07/19 23:59 23:59 23:59 Intake Total 3262.76 / 3262.76 2848.33 / 2848.33 Output Total 1650 / 1650 3450 / 3450 Balance 1612.76 / 1612.76 -601.67 / -601.67 Medical Necessity - Tobacco Use Smoking Status: Never smoker Assessment/Plan POD#2 Primary C section. Failed induction. LGA Stable postop. Continue routine care, assist prn.
[2019-03-07 10:18] VITALS: BP 100/59; PULSE 82; RESP 16; TEMP 36.1
[2019-03-07] MEDS: Docusate Sodium 100 MG Capsule PO ×2 (10:34→22:47)
[2019-03-07] MEDS: Prenatal Vits Tablet 1 TABLET PO (10:34)
[2019-03-07 13:26] VITALS: BP 114/71; PULSE 99; RESP 16; TEMP 36.1; O2SAT 97
[2019-03-07 19:35] VITALS: BP 114/75; PULSE 105; RESP 16; TEMP 36.4; O2SAT 98
[2019-03-08 02:10] VITALS: BP 108/61; PULSE 94; RESP 18; TEMP 36.6; O2SAT 96
[2019-03-08] MEDS: Naproxen 250 MG Tablet PO (06:42)
[2019-03-08 08:36] VITALS: BP 120/77; PULSE 85; RESP 18; TEMP 36.2; O2SAT 96
--- NOTE | 2019-03-08 08:36 | PCM.PN.OB ---
Subjective: POD#3 Primary C/S LGA Failed induction. Doing well with PO meds. Nursing. Would like to go home today. No concerns voiced. Reviewed and postop incision care - Physical Exam General: Alert, Oriented x3, Cooperative, No apparent distress HEENT: Atraumatic, EOMI Neck: Supple Abdomen: Soft - Fundus firm NT inferior to umbilicus 3-4 cm inferior to umbilicus Skin: Incision - Mepilex CDI Neurological: Cranial nerves II-XII grossly intact Psych/Mental Status: Normal Affect Vital Signs Temp Pulse Resp BP Pulse Ox 97.9 F 94 18 108/61 96 03/08/19 02:10 03/08/19 02:10 03/08/19 02:10 03/08/19 02:10 03/08/19 02:10 Oxygen Delivery Method Room Air Weight: 98.43 kg Body Mass Index (BMI) 34.0 Intake and Output for Last 24 Hours 03/06/03/07/19 03/08/19 23:59 23:59 23:59 Intake Total 2848.33 / 2848.33 Output Total 3450 / 3450 Balance -601.67 / -601.67 Medical Necessity - Tobacco Use Smoking Status: Never smoker Assessment/Plan POD#3 Primary C section. Failed induction. LGA Stable postop. Dischg home today. RTO in 2 wk for postop incision check. Demonstrated how to begin to remove surgical dressing and advised she needs to remove in 1 wk after baby's . Offered to remove today for her , declined.
--- NOTE | 2019-03-08 08:40 | DS.PCM_ITS ---
Discharge Date and Diagnosis Date of Admission: 03/04/19 Date of Discharge: 03/08/19 Hospital Course and Treatment Operations: - - induction of labor. Prolonged induction. Failed induction. Primary C/S LGA Summary of Care Provided: The patient is a 23 year old female at 40 5/7 wk presents for induction of labor. Pitocin started, would not allow amniotomy. Amniotomy eventually performed. Despite AROM and Pitocin, no descent no progress of labor Advised failed induction dx requires 24 hr of AROM with Pitocin and no progress. Declined full 24 hr trial then. Primary C/S performed. 10#6 oz male unengaged in pelvis. Surgery and postoperative course uncomplicated. Mild anemia or with superimposed acute blood loss anemia. Normalizing WBCs noted Home on POD#3 per pt request. RTO in 2 wk for postop incision check. Dischg instructions given. - Physical Exam Vital Signs Temp Pulse Resp BP Pulse Ox 97.9 F 94 18 108/61 96 03/08/19 02:10 03/08/19 02:10 03/08/19 02:10 03/08/19 02:10 03/08/19 02:10 Oxygen Delivery Method Room Air Weight: 98.43 kg Body Mass Index (BMI) 34.0 Intake and Output for Last 24 Hours 03/06/19 03/07/19 03/08/19 23:59 23:59 23:59 Intake Total 2848.33 / 2848.33 Output Total 3450 / 3450 Balance -601.67 / -601.67 Discharge Diet: No Restrictions Discharge Activity: May not drive while taking narcotic pain medications., May Shower, May Take a Tub Bath Return to work on:: 04/18/19 May resume sexual activity in: 4-6 weeks Additional Activity Instructions:: Nothing in the vagina for 4-6 weeks. You may return to work/school in 6 weeks. Change Dressing in (Days):: 14 Remove Dressing in (days):: 14 Cleanse incision/area with: Soap & Water, Keep Dressing Clean & Dry Home Medications: Medications to take at Discharge Vit No.130/Iron/Folic [ Tablet] 1 tab PO DAILY 10/28/18 Symbicort 80-4.5 Mcg Inhaler 10/28/18 Docusate Sodium [Colace] 100 mg PO BID #30 cap 03/05/19 Naproxen [Naprosyn] 250 - 500 mg PO TID PRN PRN #30 tab 03/05/19 Oxycodone [Oxyir] 5 mg PO Q6H PRN PRN 4 Days #15 tab 03/05/19 Docusate Sodium [Colace] 100 mg PO BID #30 cap 03/06/19 Following Prescrptions Were Given to Patient: Docusate Sodium [Colace] 100 mg PO BID #30 cap Transmission Status: Received by [id number] Docusate Sodium [Colace] 100 mg PO BID #30 cap Transmission Status: Received by [id number] Naproxen [Naprosyn] 250 - 500 mg PO TID PRN PRN #30 tab PRN Reason: Mild-Mod Pain (1-10/01) Transmission [id number] Oxycodone [Oxyir] 5 mg PO Q6H PRN PRN 4 Days #15 tab PRN Reason: Mod-Severe Pain (-03/03) Transmission [id number] Primary Care Physician: Ezequiel Shoemaker MD [Primary Care Provider] - Please Follow Up With: Nyasia Jacobson MD - [phone] When: Call to make an appointment for an incision check in 2 weeks. Medical Necessity - Tobacco Use Smoking Status: Never smoker Meaningful Use Info Meaningful Use Diagnoses (Choose all that apply): None applicable
[2019-03-08] MEDS: oxyCODONE 5 MG Tablet PO (09:15)
[2019-03-08] MEDS: Prenatal Vits Tablet 1 TABLET PO (10:37)
[2019-03-08] MEDS: Docusate Sodium 100 MG Capsule PO (10:37)
[2019-03-08 14:28] VITALS: BP 131/77; PULSE 100; RESP 18; TEMP 36.5; O2SAT 100
== END 2019-03-08 16:30 | disposition home or self-care (01) | DRG 787 ==
PROVIDERS: Admitting Provider Obstetrics & Gynecology; Family Provider Family Medicine; PCP Family Medicine; Referring Provider Obstetrics & Gynecology; Visit Provider Obstetrics & Gynecology
DX: O61.0 Failed medical induction of labor (principal); O63.9 Long labor, unspecified; Z3A.40 40 weeks gestation of pregnancy; Z37.0 Single live birth; J45.909 Unspecified asthma, uncomplicated; O99.52 Diseases of the respiratory system complicating childbirth; O36.63X0 Maternal care for excessive fetal growth, third trimester, not applicable or unspecified; O62.2 Other uterine inertia
CPT/HCPCS: 59025; 59050; 85025; 85027; 86850; 86900; 86901; 99218; J7120; A4216; G0378; J2405

== ENCOUNTER → 2019-09-30 | Outpatient (CLI) | payer MEDICAID, SELFPAY ==
[2019-09-30 18:08] LABS: Chlamydia Trachomatis by PCR Negative (Negative); Neisserai gonorrhoeae by PCR Negative (Negative); Probe Check PASS; Sample Adequacy Control PASS; Specimen Processing Control PASS
== END | disposition home or self-care (01) ==
PROVIDERS: PCP Family Medicine; Referring Provider Obstetrics & Gynecology; Visit Provider Obstetrics & Gynecology
DX: Z11.3 Encounter for screening for infections with a predominantly sexual mode of transmission (principal)
CPT/HCPCS: 87491; 87591

== ENCOUNTER 2019-10-11 23:05 | Emergency (ER) | payer MEDICAID, SELFPAY ==
[2019-10-11 23:06] VITALS: BP 148/86; PULSE 79; RESP 20; TEMP 37.2; O2SAT 98; BMI 29.2
--- NOTE | 2019-10-11 23:24 | US_ITS ---
STUDY: ULTRASOUND OF THE FEMALE PELVIS - COMPLETE REASON FOR EXAM: Female, 23 years old. RECENT MISCARRIAGE, NOW WITH PAIN - CONTRACTIONS /BLEEDING LMP: TECHNIQUE: Transvaginal TECHNICAL QUALITY: Adequate. COMPARISON: None. FINDINGS: The uterus is anteverted and is in a midline position. The uterus measures 1.9 x 6.1 x 5.7 cm. Normal uterine cervix. The endometrium measures 21 mm in thickness, and is heterogeneous with some vascularity.. There is a partially fluid distended appearance of the endometrium. The right ovary is visualized. The right ovary measures 4.3 x 2.0 x 2 point cm. There is no right ovarian cyst or ovarian mass. There is no visualized right adnexal mass or complex lesion. There is normal arterial and normal venous vascularity. The left ovary is visualized. The left ovary measures 2.1 x 2.5 x 1.4 cm. There is no left ovarian cyst or ovarian mass. There is no visualized left adnexal mass or complex lesion. There is normal arterial and normal venous vascularity. There is no fluid in the cul-de-sac. The pre void volume of the bladder was ml. The post void volume of the bladder was ml. Polycystic ovary disease: No. US/Transvaginal Non- IMPRESSION: Thickened endometrium with partially distended fluid density with increased vascularity raises concern for retained products of conception. Electronically Signed: Jazmín Saeed MD at 1:10 EDT Tel , Service support ,
--- NOTE | 2019-10-11 23:27 | ED.VIS.FEGU ---
History of Present Illness Chief Complaint: Vag Bld, Preg Informant: Patient Pain: Pelvic Pain Onset: Today Context: Gradual Onset Timing: Continuous Quality: Cramping Location: Suprapubic Current Severity: Moderate Maximum Severity: Severe Worsened by: - - when vaginal bleeding is increased Relieved by: - - nothing but not taking meds for it Issue: Vaginal bleeding, Passing clots. Negative for: Passing tissue Onset: Days - 2 Timing: Waxes and wanes Current Severity: Heavy - a little earlier, but lessened now Associated Symptoms: Negative for: Dysuria, Frequency, Urgency, Hematuria P: 1 Ab: 2 Narrative: Patient had intrauterine demise at about 9 weeks, she was told this past week based on an ultrasound. 2 days ago, she miscarried the baby at home. Bleeding tapered after that onset of the pain, but bleeding and pain both ramped up in the last 4 or 5 hours, along with vomiting. She is feeling a little lightheaded but denies any near syncope. - Past Medical History (1) Asthma Status: Chronic Past Medical History - Allergies and Home Meds Allergies/Adverse Reactions: Allergies No Known Allergies Allergy (Verified 10/28/18 20:22) Primary Care Physician: Ezequiel Shoemaker MD [Primary Care Provider] - Surgical History: - - Smoking Status: Never smoker Review of Systems General: Reports: Malaise. Denies: Chills, Fever, Sweats Eyes: Denies: Visual changes - bilaterally, Diplopia ENT: Denies: Rhinorrhea, Sore throat Cardiovascular: Denies: Chest pain, Palpitations Respiratory: Denies: Dyspnea, Cough, Dyspnea on exertion Gastrointestinal: Reports: Abdominal pain, Nausea, Vomiting. Denies: Diarrhea, Melena, Hematochezia Genitourinary: Reports: - - vaginal bleeding. Denies: Dysuria, Hematuria, Frequency Musculoskeletal: Denies: Back pain, Swelling, Extremity Pain Skin: Denies: Rash, Wounds Neurological: Denies: Headache, Weakness, Numbness Physical Exam Vital Signs/Narrative: Vital Signs Temp Pulse Resp BP Pulse Ox 10/11/19 23:06 98.9 F 79 20 H 148/86 H 98 Inital Vital Signs reviewed: Yes General: Well nourished, Well developed, - - NAD Head: Normocephalic, Atraumatic Eyes: Perrl, EOMI ENT: Moist mucous membranes, No rhinorrhea Neck: Supple, Nontender Cardiovascular: Regular rate, Regular rhythm, No murmurs. Negative for: Tachycardia Respiratory: No distress, CTA bilaterally, Chest nontender Abdomen: Soft, Nontender, Nondistended, Normal bowel sounds : Speculum exam: Normal external genitalia, No vaginal lesions, No active bleeding, Old blood, Large clots - present in cervical os; not able to be completely removed, pieces break off when trying to gently remove it w/ clamps Bimanual exam: No cervical motion tenderness Back: Nontender, Normal Inspection. Negative for: CVA tenderness Extremities: Nontender, No edema Skin: Normal color, No rash Neurological: Alert, Oriented x3, Cranial nerves II-XII grossly intact, Normal Strength, Normal Sensation, Normal Gait Psychological: Normal affect, Normal Mood Diagnostic/Tx/Re-eval Impressions Transvaginal US 10/11/19 23:24 IMPRESSION: Thickened endometrium with partially distended fluid density with increased vascularity raises concern for retained products of conception. Electronically Signed: Jazmín Saeed MD at 1:10 EDT Tel , Service support , 10/11/19 23:24 Transvaginal Non- [US] Stat Laboratory Results 10/11/19 23:34 WBC 13.7 H RBC 3.91 L Hgb 11.7 L Hct 34.7 L MCV 88.7 MCH 29.9 MCHC 33.7 RDW Std Deviation 40.6 RDW Coeff of Carmela 12.7 Plt Count 312 MPV 10.3 - Medical Decision/Diagnostic Studies Test results as above. Her blood type is a positive as seen by prior blood bank records. She feels much better after Toradol and Zofran along with some IV fluid that were given for comfort. Vital signs are stable and normal. Discussed with Dr. Marcelino. Given that she is only 2 days out and no longer has heavy bleeding at this time, he recommends expectant management and close outpatient follow-up later this week in the office. Discussed reasons to return with the patient. She is comfortable with that plan. ED Disposition - Plan for ED Patient: Disposition: Home or Assisted Living Diagnosis: Incomplete spontaneous Instructions: ED MISCARRIAGE Incomplete Referrals: Ezequiel Shoemaker MD [Primary Care Provider] - Nyasia Jacobson MD [STAFF PHYSICIAN] - (or other Curator Of [employer]s, tomorrow or -- call for appt)
[2019-10-11 23:40] LABS: Hematocrit 34.7 % (37-47); Hemoglobin 11.7 g/dL (12.0-15.0); Mean Corp Hgb Conc 33.7 g/dL (32-36); Mean Corpuscular Hgb 29.9 pg (27.0-32.0); Mean Corpuscular Volume 88.7 fL (81-99); Mean Platelet Vol. 10.3 fl (6.2-12.0); Platelet Count 312 K/mm3 (150-450); RBC Distribution Width CV 12.7 % (11.6-14.6); RBC Distribution Width SD 40.6 fl (35.1-43.9); Red Blood Count 3.91 M/mm3 (4.2-5.4); White Blood Count 13.7 K/mm3 (4.4-11.0)
[2019-10-12] MEDS: Ketorolac 15 MG/ML Vial IV (00:13)
[2019-10-12] MEDS: Ondansetron 4 MG/2 ML Vial IV (00:13)
[2019-10-12] MEDS: 0.9% Normal Saline 1,000 ML 999 ML IV (00:13)
[2019-10-12 01:37] VITALS: BP 117/91; PULSE 83; RESP 12; O2SAT 99
== END 2019-10-12 01:38 | disposition home or self-care (01) ==
PROVIDERS: Emergency Provider Emergency Medicine; PCP Family Medicine
DX: O03.4 Incomplete spontaneous abortion without complication (principal); J45.909 Unspecified asthma, uncomplicated
CPT/HCPCS: 76830; 85027; 96361; 96374; 96375; 99282; J7030; A4216; J2405

== ENCOUNTER 2019-10-12 11:33 | Day surgery (SDC) | payer MEDICAID, SELFPAY ==
[2019-10-11 23:06] VITALS: BMI 29.2
[2019-10-12 12:02] LABS: Hematocrit 33.9 % (37-47); Hemoglobin 11.2 g/dL (12.0-15.0); Mean Corpuscular Hgb 29.9 pg (27.0-32.0); Mean Corpuscular Volume 90.4 fL (81-99); Mean Platelet Vol. 10.4 fl (6.2-12.0); Platelet Count 305 K/mm3 (150-450); RBC Distribution Width SD 42.4 fl (35.1-43.9); Red Blood Count 3.75 M/mm3 (4.2-5.4); White Blood Count 8.5 K/mm3 (4.4-11.0)
[2019-10-12 12:19] VITALS: BP 119/72; PULSE 82; RESP 16; TEMP 36.6; O2SAT 100; BMI 29.5
[2019-10-12] MEDS: Lactated Ringers 1,000 ML 100 ML IV (12:35)
--- NOTE | 2019-10-12 13:00 | POC_PTH ---
PATIENT: VALENTE DONOVAN LOC: [facility] [place] U#:[id number] AGE/SX: ROOM: RE10/12/[address]: Dr. Tyrone Marcelino MD : 1995 BED: DIS: 10/12/2019 SPEC #: [id number] RECD: 10/12/19 14:38 STATUS: SILVANA CARLOS #: [id number] TREVOR: 10/12/19 13:[address]: Tyrone Marcelino DEPT: SURGICAL PATHOLOGY RECD BY: Guillermo Rivera ENTERED: 10/13/19 09:11 SP TYPE: PROD CONC OTHR DR: Dr. Ezequiel Shoemaker MD Tissues: Product of conception, NOS Procedures: Surgery Specimen Level IV HEADER OPERATION: Suction dilation and curettage PRE-OP DIAGNOSIS: Incomplete spontaneous TISSUE SUBMITTED: Products of conception MICROSCOPIC DIAGNOSIS Endometrium, curettage: Chorionic villi, decidualized stroma and trophoblastic cells consistent with products of conception. AM:isaura 10/14/19 MICROSCOPIC DESCRIPTION Slides are reviewed. GROSS DESCRIPTION Received in fixative is one container labeled with the patient's name and designated products of conception. The specimen consists of multiple fragments of blood clot mixed with hemorrhagic soft tissue that in aggregate measure 9 x 9 x 3 cm. tissue is not identified. Perforator Operator tissue is submitted in two cassettes. / SJ:rg 10/13/19 TC:5 CPT: 79992
--- NOTE | 2019-10-12 13:16 | PCM.OPRPT ---
Report of Operation Date of Procedure: 10/12/19 Pre-Operative Diagnosis: Inevitable Miscarriage Post-Operative Diagnosis: Inevitable Miscarriage Surgery/Procedure Performed:: Suction Dilation and Evacuation Description of Surgical Findings:: 10 cm endometrial cavity with products of conception Anesthesiologist: Kulwant Villalba Specimen's removed: Products of conception Estimated Blood Loss (mL): Minimal Fluids Replaced: Crystalloid Description of Procedure: Surgeon: Tyrone Marcelino MD, FACOG Indication: 23 year patient with incomplete AB at 11 weeks gestation without FHTs. Pt has been counseled regarding the risks, benefits, and alternatives of this procedure and all questions were answered. Procedure: Patient was taken to the operating room where she was given IV sedation. The patient was prepped and draped in the usual sterile fashion. The anterior cervix was grasped with a tenaculum and cervix was dilated. A 10 mm suction curette was inserted into the cervix and all contents removed. Uterus was gently curetted and remaining tissue was removed by reinserting the suction curette. The patient tolerated the procedure well and was taken to the recovery room in satisfactory condition. Sponge, instruments and needle counts were all correct. There were no apparent complications of the surgery. Grafts/Implants Used: None - Complications None - Admit VTE Documentation VTE Present on Admission: Yes VTE Mechan Device Prophylaxis: SCD's
--- NOTE | 2019-10-12 13:19 | DCINST_ITS ---
Discharge Diet: No Restrictions Discharge Activity: Return to Normal Activity, May Shower, May Take a Tub Bath May resume sexual activity in: 2 weeks Call your doctor if you observe: Fever of 101 or Higher, Inability to urinate, Inability to have a bowel movement, Using more than one pad per hour Allergies/Adverse Reactions: Allergies No Known Allergies Allergy (Verified 10/12/19 12:06) Medications to take at Discharge Vit No.130/Iron/Folic [ Tablet] 1 tab PO DAILY 10/28/18 Symbicort 80-4.5 Mcg Inhaler 2 INHALATION DAILY 10/28/18 Naproxen [Naprosyn] 250 - 500 mg PO TID PRN PRN #30 tab 03/05/19 Primary Care Physician: Ezequiel Shoemaker MD [Primary Care Provider] - Test Results: Test results from this visit will be discussed in further detail at your follow- up appointment, if applicable. Please Follow Up With: Tyrone Marcelino MD When: 2 to 3 weeks
[2019-10-12 13:43] VITALS: BP 108/63; BP 119/72; PULSE 84; RESP 16; TEMP 36.4; O2SAT 100
[2019-10-12 13:48] VITALS: BP 109/65; BP 119/72; PULSE 86; RESP 16; O2SAT 100
[2019-10-12 13:53] VITALS: BP 110/62; BP 119/72; PULSE 86; RESP 16; O2SAT 100
[2019-10-12 13:59] VITALS: BP 109/66; BP 119/72; PULSE 86; RESP 16; TEMP 36.1; O2SAT 100
[2019-10-12 15:03] VITALS: BP 119/72
--- NOTE | 2019-10-12 21:51 | HP.PCM_ITS ---
History and Physical Date of Admission: 10/12/19 Surgical History and Physical Kristin Haywood, a 23 year old female 1 0 1 0 1, presents for follow up Ultrasound with plans for Suction D and E. -- Kristin is here for a follow up. US before appt shows POC. Yesterday Kristin went to the ER for palm sized clots, contractions, and vomiting. The ER doctor pulled a clot out of cervix that was falling apart. Pt states that the contractions/ cramping last night was worse than when she was passing the baby. Today she reports minimum spotting and small clots. She took 600 mg of Advil before today's appt. Updated information. MK -- here today for ultrasound follow up from missed AB over the weekend to make sure there were no products of conception left. Last week had US at 11w2d which revealed non-viable IUP measuring 9w1d with absence of heart tones. US reveals POC seen with thickened complex irregular endo lining of 14.1mm. Complex area posterior to endo visualized with retroverted uterus. Had one Ringlyaster scrambler at 0700. Will go NPO to be added to the surgery schedule this afternoon. To follow up in 2 weeks for f/u-CH MEDICATIONS HISTORY: Current medications prescribed by our practice are: 1. promethazine 25 mg tablet, One half tab to one tab by mouth once every 6 hrs prn nausea 2. Symbicort 80 mcg-4.5 mcg/actuation HFA aerosol inhaler, 2 puffs bid prn ALLERGIES: NKDA Infections - Bronchitis, Chicken pox, HX. OF UTI'S and kidney infection Illnesses - asthma Accidents - no injuries of consequence Hospitalizations - Childbirth and see surgery Review of Systems: GENERAL - Denies fever, or chills SKIN - Denies skin changes EYES - Denies visual changes EARS - Denies difficulty hearing NOSE - Denies nasal congestion or bleeding MOUTH - Denies sore throat or difficulty swallowing NECK - Denies pain or swelling RESPIRATORY - Denies shortness of breath or wheezing CARDIOVASCULAR - Denies palpitations or chest pain GASTROINTESTINAL - Denies nausea, vomiting, diarrhea, constipation GENITOURINARY - Denies dysuria, frequency of urination, incontinence of urine MUSCULOSKELETAL - Denies joint or muscle pain NEUROLOGICAL - Denies localized numbness or weakness PSYCHIATRIC - Denies depression or anxiety ENDOCRINE - Denies heat or cold intolerance, weight loss or gain HEMATO-IMMUNOLOGIC - Denies excesive bleeding with cuts SOCIAL HISTORY: Alcohol Use - RARELY not while Smoking - Never Diet - balanced Diet, caffeine < 2 drinks per day and Water intake good when no NVP. Close to one gal. Lifestyle - low stress lifestyle Exercise - minimal and Walk 20 min. Seat Belt Use - occasional Employer - nursing home assistant administrator Illicit Drug Use - denies use of street drugs Sexual Activity - single sexual partner Residence - Live together in two story apartment. Place of - [place] Spouse-Sig Other Name - Rubén Webb Spouse-Sig Other Occupation - [employer] Spouse-Sig Other Phone No - [phone] Children Name(s) - Serena 02/2019) Control - NONE FAMILY HISTORY: Family history of breast cancer (great grandmother). MENSTRUAL HISTORY: LMP Known?- DefiniteAmount/Duration - 5 days, Regularity - Regular, Frequency - monthly days, LMP - 07/18/19, Age Onset Menarche - 12 PAST PREGNANCIES: Total Pregnancies - 3; Full Term Pregnancies - 1; Premature - 0; Abortions, Induced - 0; Abortions, Spontaneous - 2; Ectopics - 0; Multiple Births - 0; Living Children - 1 SURGICAL HISTORY: 1. 03/05/2019 ; Nyasia Jacobson M.D. PHYSICAL EXAM BP- 110/68 Sitting, Right arm, regular cuff Weight- 188.67403 lbs Height- 66.00 inch BMI:30.41 CONSTITUTIONAL - NAD, well nourished, and well developed SKIN - No rash, lesions, or ulcers HEENT - Normocephalic, PERRLA, EOMI NECK - No nodes, no nuchal rigidity and thyroid normal size and texture LYMPH NODES - Palpation of lymph nodes in neck and groins within normal limits LUNGS - CTA x2 without wheezes, crackles or rales CARDIAC - Regular rate and rhythm without rubs, murmurs, or gallops BREAST - No dominant masses, no tenderness, no axillary adenopathy, no nipple discharge, no skin changes ABDOMEN - Without hepatosplenomegaly, distention, masses, rebound, or guarding; normal bowel sounds; no hernias EXTREMITIES - No edema or calf tenderness NEUROLOGICAL - Cranial nerves II-XII grossly intact PSYCHIATRIC - A and O to time, place, person, mood and affect ASSESSMENT/PLAN: 1. Missed US reveals POC still visualized with thickened complex irregular endometrial lining at 14.1mm Last ate at 0700 Discussed D and E and RBAs of surgery and all questions answered Emotional support given To follow up in 2 weeks
== END 2019-10-12 15:27 | disposition home or self-care (01) ==
LOC: SDC 11:37 → AC 11:48
PROVIDERS: PCP Family Medicine; Referring Provider Obstetrics & Gynecology; Visit Provider Obstetrics & Gynecology
PROC: (CPT 59820; principal; 2019-10-12 12:45)
DX: O02.1 Missed abortion (principal)
CPT/HCPCS: 59820; 36415; 85027; 86850; 86900; 86901; 88305; J7120; J2405

== ENCOUNTER → 2019-12-27 13:33 | Outpatient (CLI) | payer MEDICAID, SELFPAY ==
[2019-12-27 16:08] LABS: hCG Titer Quant., Serum < 1 mIU/mL (1-3)
== END ==
PROVIDERS: PCP Family Medicine; Visit Provider Obstetrics & Gynecology
DX: N91.2 Amenorrhea, unspecified (principal)
CPT/HCPCS: 36415; 84702

== ENCOUNTER → 2020-04-16 | Outpatient (CLI) | payer MEDICAID, SELFPAY ==
[2020-04-18 03:06] LABS: Chlamydia By Nucleic Acid AMP Negative (Negative)
[2020-04-18 13:08] LABS: Gonococcus By Nucleic Acid AMP Negative (Negative)
== END | disposition home or self-care (01) ==
LOC: LABSPEC 13:16
PROVIDERS: PCP Family Medicine; Visit Provider Student in an Organized Health Care Education/Training Program
DX: Z32.01 Encounter for pregnancy test, result positive (principal); Z11.3 Encounter for screening for infections with a predominantly sexual mode of transmission
CPT/HCPCS: 87491; 87591

== ENCOUNTER → 2020-05-04 11:01 | Outpatient (CLI) | payer MEDICAID, SELFPAY ==
[2020-05-04 13:32] LABS: Absolute Lymphocyte Count 1.18 X10^3/uL (0.83-4.51); Absolute Neutrophil Count 6.6 X10^3/uL (2.0-7.7); Basophil# 0.02 X10^3/uL; Basophil% 0.2 % (0-1); Eosinophil# 0.19 X10^3/uL; Eosinophils% 2.2 % (0-5); Hematocrit 38.7 % (37-47); Lymphocyte # 1.18 X10^3/ul (4.0); Lymphocyte % 13.8 % (19-41); Mean Corp Hgb Conc 33.6 g/dL (32-36); Mean Corpuscular Volume 86.4 fL (81-99); Mean Platelet Vol. 10.8 fl (6.2-12.0); Monocyte# 0.52 X10^3/uL; Monocyte% 6.1 % (0-10); NRBC Flagged by Analyzer 0 % (0-5); Neutrophil # 6.63 X10^3/uL (2.7-7.7); Neutrophil % 77.3 % (47-70); Platelet Count 328 K/mm3 (150-450); RBC Distribution Width CV 13.4 % (11.6-14.6); RBC Distribution Width SD 41.1 fl (35.1-43.9); Red Blood Count 4.48 M/mm3 (4.2-5.4); White Blood Count 8.6 K/mm3 (4.4-11.0)
[2020-05-04 14:43] LABS: HIV - WCH Non-Reactive (Nonreactive); Hepatitis B Surface Antigen Non-Reactive (Nonreactive); Hepatitis C Antibody Non-Reactive (Nonreactive); Rubella IgG Reactive (Nonreactive)
[2020-05-10 02:38] LABS: Prenatal RPR NONREACTIVE (NONREACTIVE)
== END ==
PROVIDERS: PCP Family Medicine; Visit Provider Student in an Organized Health Care Education/Training Program
DX: Z34.81 Encounter for supervision of other normal pregnancy, first trimester (principal)
CPT/HCPCS: 36415; 85025; 86703; 86762; 86803; 87086; 87088; 87340

== ENCOUNTER → 2020-08-30 14:14 | Outpatient (CLI) | payer MEDICAID, SELFPAY ==
[2020-08-30 17:21] LABS: Glucose Challenge Gest 1H 50g 133 mg/dL (70-140)
[2020-08-30 17:22] LABS: Hemoglobin 13.2 g/dL (12.0-15.0); Mean Corpuscular Hgb 30.8 pg (27.0-32.0); Mean Corpuscular Volume 93.2 fL (81-99); Mean Platelet Vol. 11.5 fl (6.2-12.0); Platelet Count 232 K/mm3 (150-450); RBC Distribution Width CV 13.4 % (11.6-14.6); RBC Distribution Width SD 45.7 fl (35.1-43.9); Red Blood Count 4.29 M/mm3 (4.2-5.4); White Blood Count 11.1 K/mm3 (4.4-11.0)
== END ==
PROVIDERS: PCP Family Medicine; Visit Provider Student in an Organized Health Care Education/Training Program
DX: Z34.82 Encounter for supervision of other normal pregnancy, second trimester (principal)
CPT/HCPCS: 36415; 82950; 85027

== ENCOUNTER → 2020-11-21 09:43 | Outpatient (CLI) | payer MEDICAID, SELFPAY ==
[2020-11-21 10:23] LABS: Hematocrit 40.1 % (37-47); Hemoglobin 13.4 g/dL (12.0-15.0); Mean Corp Hgb Conc 33.4 g/dL (32-36); Mean Corpuscular Hgb 30.2 pg (27.0-32.0); Mean Corpuscular Volume 90.5 fL (81-99); Platelet Count 211 K/mm3 (150-450); RBC Distribution Width CV 13.3 % (11.6-14.6); RBC Distribution Width SD 43.7 fl (35.1-43.9); Red Blood Count 4.43 M/mm3 (4.2-5.4); White Blood Count 11.6 K/mm3 (4.4-11.0)
[2020-11-21 11:25] LABS: Hepatitis C Antibody Non-Reactive (Nonreactive)
== END ==
PROVIDERS: PCP Family Medicine; Visit Provider Student in an Organized Health Care Education/Training Program
DX: Z34.83 Encounter for supervision of other normal pregnancy, third trimester (principal); Z36.85 Encounter for antenatal screening for Streptococcus B; Z20.5 Contact with and (suspected) exposure to viral hepatitis
CPT/HCPCS: 36415; 85027; 86803; 87081

== ENCOUNTER → 2020-12-07 16:25 | Outpatient (CLI) | payer MEDICAID, SELFPAY ==
[2020-12-07 17:58] LABS: AST(SGOT) 15 U/L (15-37); Alanine Aminotransfer ALT/SGPT 15 U/L (13-56); Albumin, Serum 2.8 g/dL (3.2-5.0); Alkaline Phosphatase 144 U/L (45-117); Bilirubin, Direct 0.14 mg/dL (0.00-0.30); Globulin 4.4 g/dL (2.2-4.2); Protein, Total 7.2 g/dL (6.4-8.2)
== END ==
PROVIDERS: PCP Family Medicine; Visit Provider Obstetrics & Gynecology
DX: L29.9 Pruritus, unspecified (principal)
CPT/HCPCS: 36415; 80076

== ENCOUNTER 2020-12-17 05:05 | Inpatient (IN) | payer MEDICAID, SELFPAY ==
[2020-12-17] VITALS (16 sets, daily range): BP systolic 104–131; BP diastolic 50–82; PULSE 85–113; RESP 11–22; TEMP 36.1–37; O2SAT 96–100; BMI 35.2
--- NOTE | 2020-12-17 | FALS_PTH ---
PATIENT: VALENTE DONOVAN LOC: [facility] U#:[id number] AGE/SX: 25/F ROOM: [facility] RE12/17/[address]: Dr. Maria Fernanda Good MD : 1995 BED: 1 DIS: 12/18/2020 SPEC #: [id number] RECD: 12/17/20 14:11 STATUS: SILVANA REQ #: [id number] TREVOR: 12/17/20 00:[address]: Maria Fernanda Chung DEPT: SURGICAL PATHOLOGY RECD BY: Yuan Lofton ENTERED: 12/18/20 08:44 SP TYPE: FALL TUBES OTHR DR: Dr. Ezequiel Shoemaker MD Tissues: Fallopian tube Procedures: Surgery Specimen Level II HEADER OPERATION: Tubal ligation PRE-OP DIAGNOSIS: Sterilization TISSUE SUBMITTED: Fallopian tubes MICROSCOPIC DIAGNOSIS Bilateral fallopian tubes, salpingectomy: Bilateral fallopian tubes, no pathologic diagnosis. JUAN C:isaura 12/19/2020 MICROSCOPIC DESCRIPTION Slides are reviewed. GROSS DESCRIPTION Received in fixative is one container labeled with the patient's name and designated bilateral fallopian tubes, suture left fallopian tube. The specimen consists of bilateral fallopian tubes including fimbrial ends. The right fallopian tube measures 6.5 cm in length and up to 0.8 cm in diameter and the left fallopian tube measures 6.5 cm in length and 0.9 cm in diameter. Sections reveal unremarkable cut surfaces. Php Mysql Developer sections are submitted in two cassettes as follows: 1 - right fallopian tube, 2??left fallopian tube. / SJ:rg 12/18/20 TC:4 CPT: 92367 x2
[2020-12-17] MEDS: Lactated Ringers 1,000 ML 999 ML IV (05:25)
[2020-12-17 05:42] LABS: Absolute Lymphocyte Count 1.71 X10^3/uL (0.83-4.51); Absolute Neutrophil Count 8.8 X10^3/uL (2.0-7.7); Basophil# 0.01 X10^3/uL; Basophil% 0.1 % (0-1); Eosinophil# 0.13 X10^3/uL; Eosinophils% 1.1 % (0-5); Hematocrit 38.1 % (37-47); Lymphocyte # 1.71 X10^3/ul (0.83-4.51); Lymphocyte % 14.9 % (19-41); Mean Corp Hgb Conc 34.1 g/dL (32-36); Mean Corpuscular Hgb 29.7 pg (27.0-32.0); Mean Platelet Vol. 11.1 fl (6.2-12.0); Monocyte# 0.78 X10^3/uL; Monocyte% 6.8 % (0-10); NRBC Flagged by Analyzer 0 % (0-5); Neutrophil # 8.75 X10^3/uL (2.7-7.7); Neutrophil % 76.6 % (47-70); Platelet Count 214 K/mm3 (150-450); RBC Distribution Width CV 13.2 % (11.6-14.6); RBC Distribution Width SD 41.4 fl (35.1-43.9); Red Blood Count 4.38 M/mm3 (4.2-5.4); White Blood Count 11.4 K/mm3 (4.4-11.0)
[2020-12-17] MEDS: Acetaminophen 500 MG Tablet 1000 MG PO ×4 (05:57→23:39)
[2020-12-17] MEDS: Lactated Ringers 1,000 ML 150 ML IV (06:26)
--- NOTE | 2020-12-17 07:38 | PCM.HP.OB ---
HPI - General General Date of Admission: 12/17/20 HPI Narrative KRISTIN DONOVAN, is a 25 F who presents at 40 2/7 weeks gestation for scheduled repeat section with tubal sterilization. Maternal Data Information SANDY Calculator Estimated Delivery Date Method Current WG Current Estimate 12/15/20 LMP (Certain) 40w 2d [facility] Medical History depression Home Medications Symbicort 80-4.5 Mcg Inhaler 2 INHALATION DAILY 10/28/18 [History Last Taken 2 Weeks Ago ~12/03/20] vit [id number] [ Tablet] 1 tab PO DAILY 10/28/18 [History Last Taken 12/16/20] sertraline [Zoloft] 100 mg PO DAILY 12/17/20 [History Last Taken 12/16/20] Allergy/AdvReac Type Severity Reaction Status Date / Time No Known Allergies Allergy Verified 10/12/19 12:06 Surgical History (Updated 12/17/20 @ 07:[address] Maria Fernanda Good MD) History of gynecologic surgery Previous section [place] teeth removed Social History Smoking Status: Never smoker History 4 Elective abortions 0 Hx Para 1 Spontaneous abortions 2 Hx # Term Pregnancies 1 Ectopic pregnancies 0 Hx # Pregnancies 0 Multiple births 0 # of living children 1 NST FHR Rate Baby A Baseline: 130 bpm Vital Signs Vital Signs Vital Signs: 12/17/20 05:45 Temperature 97.3 F L Temperature Source Temporal Pulse Rate 95 Respiratory Rate 18 Blood Pressure 131/79 H Blood Pressure Mean 96 Blood Pressure Source Monitor Blood Pressure Position Semi-Fowlers Blood Pressure Location Right Arm Pulse Ox 98 Oxygen Delivery Method Room Air Weight Weight: 101.877 kg Body Mass Index (BMI) 35.2 Physical Exam Const alert, oriented x3 and no apparent distress HEENT normocephalic Resp normal respiratory effort, normal air movement and clear to auscultation bilaterally Cardio regular rate and regular rhythm GI normal to inspection, nondistended, normoactive bowel sounds, soft to palpation, non-tender and non-distended Inspection: gravid Labs Labs Labs: Blood Type A POSITIVE Antibody Screen NEGATIVE Hct 38.1 % (37-47) Hgb 13.0 g/dL (12.0-15.0) Rubella IgG Antibody Reactive (Nonreactive) Hep Bs Antigen Non-Reactive (Nonreactive) Neisseria gonorrhoeae DNA (PAMELA) Negative (Negative) HIV 1&2 Antibody Non-Reactive (Nonreactive) C.trachomatis DNA (PCR) Negative (Negative) Glucose 1 Hr 50 gm 133 mg/dL (70-140) Rhogam given: No Miscellaneous Test Pending PRIOR DELIVERY HISTORY DEL DATE GEST LAB WT LB WT OZ TYPE ANES LABOR TX 11 Mar 18 7 0 0 0 Sab None No Mar 12 41 24 10 6 C-Sec Spinal No October 11 12 0 0 0 Sab General No ANTEPARTUM FLOW CHART VISIT GE RTC FU F F IN U U DATE WK MD WKS HT PN HR M SS BP ED WT IN GL D EF ST __ ____ ___ __ __ ___ __ __ __ ___ __ __ __ ___ __ Nov SHM 1 39 V + + 124/78 0 225 tr - 16 Moise 38 SHM 1 38 V + + 128/64 0 223 tr - 1 50 -4 09 Nov 37 SHM 1 37 V + + 104/66 sl 223 tr - 1 30 -4 30 Oct 36 CM 1 36 V + + 126/68 0 221 - - 25 Oct 35 CM 1 35 V + + 124/74 0 218 - - 28 September 31 CM 2 32 V + + 122/74 0 213 ne ne 07 September 28 CM 2 28 + + 116/66 0 209 - - 08 Aug 24 CM 4 24 + + 118/64 0 200 tr ne 12 Jul 20 CM 4 + + 100/72 0 195 tr - 12 Jun 16 CM 4 + O 120/72 0 190 tr - 11 May 12 CM 4 +U 136/88 0 187 29 Dec 10 CM 2 +U O 106/60 0 185 - - 11 Apr 7 CM 4 +U US 112/66 0 183 ANTEPARTUM NOTE(S): Dec 13 2020: see note Dec 07 2020: see note Nov 30 2020: ctx's/cramping w/ activity Nov 21 2020: Nov 16 2020: Oct 19 2020: Sep 28 2020: Aug 30 2020: GCT today Aug 03 2020: Glucola instruction, its a boy Jul 06 2020: Nausea in morning, dry heaves Jun 04 2020: May 22 2020: May 04 2020: nausea, fatigue, sl cramping COMPREHENSIVE ANTEPARTUM NOTE(S): Dec 13 2020: section consents reviewed including r/b/i/a - discussed TOLAC and risk for uterine rupture also. Pt understands emergent C/S least safe due to increased risk for maternal and complications. Discussed preop pumping for colostrum collection. BPP today 12/30 with resolving polyhydramnios, ESA 20cm., MVP wnl. Labor, ROM, FM precautions discussed. Dec 07 2020: US today ESA 23.2cm, MVP 6.9cm. BPP 8/10 (-2 for breathing). c/o generalized itching, worsened at night. LFTs, bile acids today. Membranes stripped. Will call to come in for delivery if initial LFTs elevated. Otherwise continue observe. Labor, FM precautions. Dec 07 2020: Still hoping for if goes into labor. Wants cervix ck today. This baby measuring much less than last. FM reviewed, SROM, and labor reviewd. NST reactive today. LMT Nov 30 2020: Kristin is here for a PNV at 37 wks 6 days w/ her mother. Good FM. SL edema in fingers. Concerned that she will not make it to her on 12/17. Ctx's and cramping consistent and often appears during activity. Would like a cervix check for piece of mind. MK Nov 30 2020: Pt uncertain about mode of delivery and wonders if she is going to into labor prior to scheduled section. Considering moving up cesaean section and scheduling interval tubal separately. Discussed r/b of tolac versus. C/S at length including tubal timing, as well as risks for bleeding, hemorrhage, infection, VTE, recovery. Pt will consider further at home. GBS neg. Mild polyhydramnios pers Nov 21 2020: Kristin reporting good FM. No edema. GBS and LARC done -- decliines LARC as she is planning a C/S / BPS. BPP 8/8 and Poly 25.8 cm this morning. kbm Nov 21 2020: 36/4w. Mild poly persistent - for weekly BPPs. Plans for repeat section and BTL. Tubal consent signed 11/16 - 30 days at 12/16. Would need c/s scheduled on 12/17. Considering TOLAC if she goes into labor prior to this. Will need scheduled. Hx of macrosomia - baby AGA this . F/u 1w. CM Nov 16 2020: Kristin is here with DAVE [place], for 36 w + 6 d PNV. She is Feeling well. Reports good FM. No edema noted today. No concerns or complaints expressed. Medications and allergies up to date. LJW Nov 16 2020: 35/6w visit. Growth today for hx of macrosomia - AGA. Mild poly based on DVP 8.2. DIscussed likely etiology as idiopathic. BPP next week for ESA. Desires repeat c/s with BTL - tubal consent signed today. F/u 1w. CM Oct 19 2020: 31/6w visit. Desires repeat c/s - will scheduled with pt sees alternate provider at end of month. Hx of LGA - growth US 36w, scheduled today. Pt reports hemorrhage with last c/s, however on op note review - 800 cc EBL, given methergine for slightly boggy uterus secondary to macrosomia/prolonged induction. F/u 2w. CM Sep 28 2020: Kristin is here for PNV. She is Feeling well. Reports good FM. No edema noted today. No concerns expressed today. LW Sep 28 2020: 28/6w visit. Discussed Tdap. F/u 2w. CM Aug 30 2020: Kristin is here for PNV. GCT drawn today. Feeling much better than weeks past. Taking food and fluids much easier. No edema noted today. Having good FM. No concerns expressed today. Urine tr/neg. LSS Aug 30 2020: 24/5w visit. GTT done today. F/u 4w. CM Aug 03 2020: Kristin is here with SO for a PNV/ US. Good FM. No edema present. Glucola instruction given for 24 week appt. Baby is a boy. No concerns/ questions expressed at this time. MK Aug 03 2020: 20/6w visit. Feeling well. Anatomy wnl. F/u 4w. with glucola. CM Jul 06 2020: Kristin is here for a PNV with FOP. Reports nausea in the morning accompanied with dry heaves. Decided to stop taking phenergan as it makes her tired. Denies cramping/ spotting. Jul 06 2020: 16/6w visit. Nausea improved, persistent in AM. Discussed taking phenergan at night. Pt declines other meds. Hx of RPL - patient is continued on vaginal progesterone, okayed to stop when she feels comfortable. F/u 4w. CM Jun 04 2020: 12/2w visit. hx of SAB x2. Continue prometrium until next visit. Occasional cramping, no bleeding. Feels comfortable spacing visits to q4w. +nausea, emesis x1. Could not void, encourage fluid intake. F/u 4w. CM Jun 04 2020: Kristin is here for PNV. States that she feels fine. Having some mild issues with nausea. Tries to keep small amount of food in her stomach at all times and it seems to help. Increased her fluid intake.. No edema. Here with SO. AFter 2 attempts, could not obtain urine sample. LSS May 22 2020: 10/3w visit. Hx of RPL on progesterone, continue through at least 12w. BSUS today +HR and movement. Reassurance provided. NOB visit today. F/u 2w. 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 She is uncertain of feeding method. FOB is Rubén Webb who is a appeals and generalist clerk. They just bought their first house together and are happy about the pg. Their son, 14 mo born by PCS at 10# 6 oz after failed IOL. went well initi REVIEW OF SYSTEMS: GENERAL - Denies fever, or chills SKIN - Denies rash, new skin lesions, or change in moles EYES - Denies blurred vision, or change in visual acuity EARS - Denies ear pain, or difficulty hearing NOSE - Denies nasal congestion, discharge, or bleeding MOUTH - Denies sore throat, or difficulty swallowing NECK - Denies pain or swelling RESPIRATORY - Denies shortness of breath, cough, wheezing CARDIOVASCULAR - Denies palpitations, chest pain, orthopnea, PND, peripheral edema, syncope or claudication GASTROINTESTINAL - Denies nausea, vomiting, diarrhea, constipation, Denies abdominal pain, melena and or bright red blood GENITOURINARY - Denies dysuria, frequency of urination, urgency, or hesitancy MUSCULOSKELETAL - Denies joint or muscle pain, or back pain NEUROLOGICAL - Denies localized numbness, weakness, or tingling PSYCHIATRIC - Denies depression, anxiety, substance abuse or suicide attempts ENDOCRINE - Denies heat or cold intolerance, weight loss or gain, increasing thirst HEMATO-IMMUNOLOGIC - Denies easy bruising, bleeding, oral ulcerations or recurrent infections GENETICS SCREENING: Age 35+ years: No Thalassemia: No Neural Tube Defect: No Down Syndrome: No REYNALDO-SACHS: No Sickle Cell Disease: No Hemophilia: No Musc. Dystrophy: No Cystic Fibrosis: No-declines screening [place] Chorea: No Mental Retardation: No Fragile X: No Other genetic: No Other defects: No SABs/still births: No Drugs since LMP: Yes INFECTION HISTORY: High risk AIDS: No High risk Hepatitis: No Exposed to TB: No Exposed to Herpes: No Rash/viral illness since LMP: No History of STD: No MENSTRUAL HISTORY: *Menses Amount/Duration: 5 daysMenses Regularity: RegularFrequency: monthlyMenarche (Age Onset): 12* PAST SUMMARY: PARITY: 1. Total Pregnancies............ 4 2. Full Term Pregnancies........ 1 3. Premature.................... 0 4. Abortions - Induced.......... 0 5. Abortions - Spontaneous...... 2 6. Ectopics..................... 0 7. Multiple Births.............. 0 8. Living Children.............. 1 PAST #1: Date of :.................. 04/04/18 Gestation Weeks:................ 7 Length of labor(hours):......... 0 Sex:............................ UNKNOWN Weight-lbs:............... 0 Weight-oz:................ 0 Type of Delivery:............... Sab Type of Anesthesia:............. None Place of Delivery:.............. [place] Treatment of Labor?:.... No Comment: PAST #2: Date of :.................. 03/05/19 Gestation Weeks:................ 41 Length of labor(hours):......... 24 Sex:............................ M Weight-lbs:............... 10 Weight-oz:................ 6 Type of Delivery:............... C-Sect Type of Anesthesia:............. Spinal Place of Delivery:.............. [place] Treatment of Labor?:.... No Comment: IOL,BLEEDING, PAST #3: Date of :.................. 10/12/19 Gestation Weeks:................ 12 Length of labor(hours):......... 0 Sex:............................ UNKNOWN Weight-lbs:............... 0 Weight-oz:................ 0 Type of Delivery:............... Sab Type of Anesthesia:............. General Place of Delivery:.............. [place] Treatment of Labor?:.... No Comment: D AND E PHYSICAL EXAMINATION General Appearence: 25 yo female in no acute distress Vital Signs: AF, VSS Heart: RRR without rubs or gallops Lungs: CTA x 2 Breasts: deferred Abdomen: gravid Pelvis: Cervix: Presentation: cephalic Station: Fetus: Size: AGA Movement: present Heart: present LAB TEST(S) ORDERED SINCE:03/20/20 05/10/2020 RPR 05/07/2020 CULTURE, URINE 05/04/2020 RUBELLA IGG 05/04/2020 T AND S-NO CHARGE W/PNP 05/04/2020 HIV - [facility] 05/04/2020 HEPATITIS C ANTIBODY 05/04/2020 HEPATITIS B SURFACE ANTIGEN 05/04/2020 CBC W/DIFF, AUTOMATED 04/18/2020 CHLAMYDIA/GC PAMELA APTIMA 12/17/2020 TYPE AND SCREEN 12/17/2020 COVID 19 AG RAPID (RN COLLECT) 12/17/2020 CBC W/DIFF, AUTOMATED 12/07/2020 LIVER PROFILE 11/24/2020 RULE OUT BETA STREP (GRP. B) 11/21/2020 HEPATITIS C ANTIBODY 11/21/2020 CBC-COMPLETE BLOOD CNT NO DIFF 08/30/2020 GLUCOSE CHALLENGE GEST 1H 50G 08/30/2020 CBC-COMPLETE BLOOD CNT NO DIFF == ==== Order Observation Description Value Ref_Range A* Site == ==== [facility]~[address] [place], [address]~ TYPE AND SCRE AB SCREEN GEL NEGATIVE ML COVID 19 AG RAP NOTE GREY CBC W/DIFF, AUT NOTE GREY CBC W/DIFF, AUT WBC 11.4 K/mm3 4.4-11.0 H ML CBC W/DIFF, AUT RBC 4.38 M/mm3 4.2-5.4 ML CBC W/DIFF, AUT HGB 13.0 g/dL 12.0-15.0 ML CBC W/DIFF, AUT HCT 38.1 37-47 ML CBC W/DIFF, AUT MCV 87.0 fL 81-99 ML CBC W/DIFF, AUT MCH 29.7 pg 27.0-32.0 ML CBC W/DIFF, AUT MCHC 34.1 g/dL 32-36 ML CBC W/DIFF, AUT RDW CV 13.2 11.6-14.6 ML CBC W/DIFF, AUT RDW SD 41.4 fl 35.1-43.9 ML CBC W/DIFF, AUT PLT 214 K/mm3 150-450 ML CBC W/DIFF, AUT MPV 11.1 fl 6.2-12.0 ML CBC W/DIFF, AUT NEUT% 76.6 47-70 H ML CBC W/DIFF, AUT LY% 14.9 19-41 L ML CBC W/DIFF, AUT MONO% 6.8 0-10 ML CBC W/DIFF, AUT EO% 1.1 0-5 ML CBC W/DIFF, AUT BASO% 0.1 0-1 ML CBC W/DIFF, AUT IG% 0.500 0.0-0.9 ML IG% - Immature Granulocytes (promyelocytes, myelocytes and metamyelocytes) > 1% indicates that a LEFT SHIFT is Present. CBC W/DIFF, AUT ABSOLUTE NEUT 8.8 X10 3/uL 2.0-7.7 H ML CBC W/DIFF, AUT ABSOLUTE LYMPH 1.71 X10 3/uL 0.83-4.51 ML CBC W/DIFF, AUT NUCLEATED RBC 0 0-5 ML LIVER PROFILE NOTE GREY LIVER PROFILE T PROT 7.2 g/dL 6.4-8.2 ML LIVER PROFILE ALB 2.8 g/dL 3.2-5.0 L ML LIVER PROFILE GLOB 4.4 g/dL 2.2-4.2 H ML LIVER PROFILE AST 15 U/L 15-37 ML LIVER PROFILE ALK P 144 U/L 45-117 H ML LIVER PROFILE ALT 15 U/L 13-56 ML LIVER PROFILE T BILI 0.40 mg/dL 0.20-1.00 ML For patients on eltrombopag therapy, use of Dimension [place] TBIL is not recommended. LIVER PROFILE D BILI 0.14 mg/dL 0.00-0.30 ML HEPATITIS C ANT NOTE GREY HEPATITIS C ANT HEPATITIS C AB Non-Reactive Nonreactive ML Non Reactive: < 0.8 Equivocal: >/= 0.8 to < 1.0 Reactive: >/= 1.0 The CDC recommends that a reactive/equivocal HCV antibody result be followed up by the HCV Nucleic Acid Amplification test (101010) CBC-COMPLETE BL NOTE GREY CBC-COMPLETE BL WBC 11.6 K/mm3 4.4-11.0 H ML CBC-COMPLETE BL RBC 4.43 M/mm3 4.2-5.4 ML CBC-COMPLETE BL HGB 13.4 g/dL 12.0-15.0 ML CBC-COMPLETE BL HCT 40.1 37-47 ML CBC-COMPLETE BL MCV 90.5 fL 81-99 ML CBC-COMPLETE BL MCH 30.2 pg 27.0-32.0 ML CBC-COMPLETE BL MCHC 33.4 g/dL 32-36 ML CBC-COMPLETE BL RDW CV 13.3 11.6-14.6 ML CBC-COMPLETE BL RDW SD 43.7 fl 35.1-43.9 ML CBC-COMPLETE BL PLT 211 K/mm3 150-450 ML CBC-COMPLETE BL MPV 11.0 fl 6.2-12.0 ML RULE OUT BETA S NOTE GREY CBC-COMPLETE BL NOTE GREY CBC-COMPLETE BL WBC 11.1 K/mm3 4.4-11.0 H ML CBC-COMPLETE BL RBC 4.29 M/mm3 4.2-5.4 ML CBC-COMPLETE BL HGB 13.2 g/dL 12.0-15.0 ML CBC-COMPLETE BL HCT 40.0 37-47 ML CBC-COMPLETE BL MCV 93.2 fL 81-99 ML CBC-COMPLETE BL MCH 30.8 pg 27.0-32.0 ML CBC-COMPLETE BL MCHC 33.0 g/dL 32-36 ML CBC-COMPLETE BL RDW CV 13.4 11.6-14.6 ML CBC-COMPLETE BL RDW SD 45.7 fl 35.1-43.9 H ML CBC-COMPLETE BL PLT 232 K/mm3 150-450 ML CBC-COMPLETE BL MPV 11.5 fl 6.2-12.0 ML GLUCOSE CHALLEN NOTE GREY GLUCOSE CHALLEN GLU GEST 50G 1H 133 mg/dL 70-140 ML CULTURE, URINE NOTE GREY RPR NOTE GREY RPR RPR NONREACTIVE NONREACTIVE ML Reason for Type AND Screen/Red Cells: Surgery? [facility]~[address] [place], [address]~ T AND BLOOD TYPE GEL A POSITIVE N ML T AND AB SCREEN GEL NEGATIVE N ML HEPATITIS C ANT NOTE GREY HEPATITIS C ANT HEPATITIS C AB Non-Reactive Nonreactive ML Non Reactive: < 0.8 Equivocal: >/= 0.8 to < 1.0 Reactive: >/= 1.0 The CDC recommends that a reactive/equivocal HCV antibody result be followed up by the HCV Nucleic Acid Amplification test (224971) HEPATITIS B CHRISTINA NOTE GREY HEPATITIS B CHRISTINA HEPB SURFACE AG Non-Reactive Nonreactive ML HIV - [facility] NOTE GREY HIV - [facility] HIV - [facility] Non-Reactive Nonreactive ML RUBELLA IGG NOTE GREY RUBELLA IGG RUBELLA IGG Reactive Nonreactive ML Antibody Results Interpretation of Immune Status Non Reactive Presumed Non-Immune Equivocal Equivocal Reactive Presumed Immune CBC W/DIFF, AUT NOTE GREY CBC W/DIFF, AUT WBC 8.6 K/mm3 4.4-11.0 ML CBC W/DIFF, AUT RBC 4.48 M/mm3 4.2-5.4 ML CBC W/DIFF, AUT HGB 13.0 g/dL 12.0-15.0 ML CBC W/DIFF, AUT HCT 38.7 % 37-47 ML CBC W/DIFF, AUT MCV 86.4 fL 81-99 ML CBC W/DIFF, AUT MCH 29.0 pg 27.0-32.0 ML CBC W/DIFF, AUT MCHC 33.6 g/dL 32-36 ML CBC W/DIFF, AUT RDW CV 13.4 % 11.6-14.6 ML CBC W/DIFF, AUT RDW SD 41.1 fl 35.1-43.9 ML CBC W/DIFF, AUT PLT 328 K/mm3 150-450 ML CBC W/DIFF, AUT MPV 10.8 fl 6.2-12.0 ML CBC W/DIFF, AUT NEUT% 77.3 % 47-70 H ML CBC W/DIFF, AUT LY% 13.8 % 19-41 L ML CBC W/DIFF, AUT MONO% 6.1 % 0-10 ML CBC W/DIFF, AUT EO% 2.2 % 0-5 ML CBC W/DIFF, AUT BASO% 0.2 % 0-1 ML CBC W/DIFF, AUT IM GRAN % 0.400 % 0.0-0.9 ML IG% - Immature Granulocytes (promyelocytes, myelocytes and metamyelocytes) > 1% indicates that a LEFT SHIFT is Present. CBC W/DIFF, AUT ABSOLUTE NEUT 6.6 X10 3/uL 2.0-7.7 ML CBC W/DIFF, AUT ABSOLUTE LYMPH 1.18 X10 3/uL 0.83-4.51 ML CBC W/DIFF, AUT NRBC, FLAGGED 0 % 0-5 ML CHLAMYDIA/GC NA NOTE GREY CHLAMYDIA/GC NA CHLAMY,NUC ACID Negative Negative LC CHLAMYDIA/GC NA GC BY NUC ACID Negative Negative LC Performed at: = - [facility] [id number] [employer]: Linda Arnold MD, Phone: [phone] A POSITIVE *Negative results from patients with symptom onset beyond five days should be treated as presumptive and confirmed by a molecular assay if clinically necessary. Negative results should not be used as the sole basis for treatment or for patient management. COVID 19 AG RAPID (RN COLLECT) *Positive results do not differentiate between SARS-CoV and SARS-CoV-2. If differentation of the specific SARS virus is desired an additional sample and an additional order is required. COVID 19 AG RAPID (RN COLLECT) * This test has not been FDA cleared or approved; the test has been authorized by FDA under an Emergency Use Authorization (EAU) for use by laboratories certified under CLIA that meet the requirements to perform moderate, high, or waived complexity tests. COVID 19 AG RAPID (RN COLLECT) Normal Reference Range: Negative SARS-CoV-2 (COVID 19) Negative RAPID METHOD Quidel Mary Ann Analyzer YONNY, lateral flow immunofluorescent Group B Beta Streptococcus is not isolated. Urine Culture Below infection level. ORGANISM 1: Lactobacillus species [place] Count 1000-10,000 Assessment & Plan (1) 40 weeks gestation of : PLAN: Proceed with repeat C/S (2) Request for sterilization: PLAN: Plan bilateral salpingectomy
[2020-12-17] MEDS: Oxytocin 30 units/NS 500 ml 30 UNITS/500 ML IV.SOLN 167 UNITS IV (09:00)
[2020-12-17] MEDS: Ketorolac 30 MG/ML Syringe IV ×3 (09:58→22:07)
[2020-12-17] MEDS: Lactated Ringers 1,000 ML 100 ML IV (12:04)
[2020-12-17] MEDS: Senna/Docusate Sodium 1 Tablet PO (12:34)
[2020-12-17] MEDS: 0.9% Saline Lock 10 ML Syringe IV ×3 (12:34→22:12)
[2020-12-17] MEDS: Heparin Injection (Vial) 5,000 UNIT/ML VIAL 5000 UNIT SC ×2 (14:29→22:07)
[2020-12-17] MEDS: Ondansetron 4 MG/2 ML Vial IV (14:29)
[2020-12-17] MEDS: Cefazolin 2 GM in 0.9% Normal Saline 100 ML IV ×2 (15:30→23:39)
--- NOTE | 2020-12-17 18:41 | OP.PCM_ITS ---
Assessment & Plan (1) Sterilization: (2) delivery delivered: Maternal Data Information SANDY Calculator Estimated Delivery Date Method Current WG Current Estimate 12/15/20 LMP (Certain) 40w 2d Details Operative Information Date of Procedure: 12/17/20 Pre-Operative Diagnosis: 40 2/7 weeks gestation Previous section Sterilization request Post-Operative Diagnosis: 40 2/7 weeks gestation Previous section Sterilization request Indications for : Repeat Elective and Desires elective sterilization Classification: Scheduled Procedure Type: low transverse gis database administrator #1: Best Salamanca Type of Anesthesia: Spinal Anesthesiologist: Luke Pittman Antibiotic Given: Ancef 2 grams IV x1 Drain: Baez to straight drain Estimated Blood Loss: 1200 mL Fluids Replaced: 1000 mL Findings Description of Procedure: The patient was taken to the operating room and spinal analgesia was administered. She is placed in a dorsal supine position with left lateral tilt. The perineum and abdomen were prepped and draped in sterile fashion. And the spinal was found to be adequate. A Pfannenstiel incision was made using a scalpel and brought down to incise the subcutaneous tissue and rectus fascia at the midline. Subcutaneous tissue was bluntly dissected off the fascia laterally. The fascial incision was dissected laterally and cephalad using curved Villarreal scissors. The superior leaflet of the rectus fascia was grasped using Melba clamps and bluntly dissected and sharply dissected from the underlying rectus muscle. In a similar fashion the inferior rectus fascia was dissected from the underlying muscle. The rectus muscles were bluntly at the midline. The peritoneum was identified and entered [sharply]. The bladder blade was placed into the abdomen and the vesicouterine peritoneal fold identified. The fold was incised and a bladder flap created. Bladder blade was then repositioned to the abdomen. A low transverse hysterotomy was made using the [Metzenbaum scissors] to level of the membranes. The hysterotomy was extended bluntly cephalad and caudad. The head was elevated and brought to the level of the hysterotomy, the membranes were ruptured, and the delivered revealing a [male] with poor tone. The mouth and nares were bulb suctioned and the stimulated. The cord was doubly clamped and cut after 30 seconds. The was passed to awaiting [nursery personnel]. The placenta was [expressed] from the uterus and appeared intact on inspection. The uterus was exteriorized and cleared of debris. There was uterine atony without hemorrhage. IV Pitocin and uterine massage was performed with improvement of uterine atony. The hysterotomy was then repaired using 0 Vicryl running lock suture with excellent hemostasis. Attention was turned to the right adnexa and the tubal fimbria identified with few adhesions to the mesosalpinx. The peritoneal adhesions were sharply dissected. The LigaSure was utilized to electrocoagulated and transected the tube from the mesosalpinx to the level of the uterine cornua performing salpingectomy. Attention was turned to the right adnexa. Again sharp dissection of tubal adhesions was performed and followed by salpingectomy to the level of the uterine cornua using the LigaSure device. There was some bleeding from the mesosalpinx controlled using electrocoagulation with the LigaSure. Edi was placed here. Attention was turned back to the hysterotomy. There appeared to be diffuse oozing despite previous hemostasis. A second imbricating layer of 0 Vicryl was placed along the hysterotomy and pressure was held for approximately 2 minutes time. Hemostasis was attained. The bladder blade was removed. The uterus and adnexa were returned to the abdomen. The bladder blade was replaced and remaining Edi placed along the hysterotomy there is good hemostasis prior to the the Edi placement. Bladder blade was removed and the anterior cul-de-sac was cleared of debris. The peritoneum and rectus muscles were reapproximated using 2-0 Vicryl running suture. The rectus fascia was closed using 0 strata fix running suture. The subcutaneous tissue was sponge irrigated and small capillary bleeding controlled using the Bovie device. The subcutaneous tissue was reapproximated using 2-0 Vicryl. The skin was closed using 4-0 Monocryl subcuticularly. Cavilon and a Mepilex occlusive dressing was placed over the incision. The fundus was firm. The patient was then transferred to the recovery room without complication. Sponge, instrument, and needle counts were correct ?2. Apgars 4, 7, 9. Infant gases 12/17/20 12/17/20 12/17/20 08:19 08:32 08:33 Specimen Type CORDART CORDVEN Cord ABG pH 7.03 L* Cord ABG pCO2 95.4 H* Cord ABG pO2 12 Cord ABG HCO3 25 Cord ABG Total CO2 28 Cord ABG Base Excess -5 L Cord ABG O2 Sat 7 L Cord VBG pH 7.16 L* Cord VBG pCO2 70.4 H* Cord VBG pO2 19 L Cord VBG HCO3 24.9 Cord VBG Total CO2 27 Cord VBG Base Excess -4 L Cord VBG O2 Sat 18 L Presentation: Positive for Vertex Amniotic Membrane Rupture Type: Artificial Amniotic Fluid Description: Clear Placental Delivery Description: Spontaneous Placenta Disposition: [facility] Specimen(s) Sent to Pathology: Placenta Cord Vessel Description: 3 Vessels Cord Entanglement: None Nuchal Cord Compression: Without compression Cord Gases: ABG and VBG Infant A Gender: Male (1 minute): 4 (5 minute): 7 Delayed Cord Clamping: Yes Complications Risks of Surgery Discussed w/Patient: Bleeding, Anesthesia Risks, Infection, Permanency, Failure Rate of 1 to 2%, Injury to surrounding structure(s) including bowel and bladder and Availability of other non-permanent control options
[2020-12-18 00:25] VITALS: BP 110/72; PULSE 95; RESP 16; TEMP 36.7; O2SAT 98
[2020-12-18] MEDS: Ketorolac 30 MG/ML Syringe IV (03:49)
[2020-12-18 05:00] VITALS: BP 116/71; PULSE 105; RESP 16; TEMP 36.7; O2SAT 97
[2020-12-18 06:27] LABS: Hematocrit 33.4 % (37-47); Hemoglobin 11.1 g/dL (12.0-15.0); Mean Corp Hgb Conc 33.2 g/dL (32-36); Mean Corpuscular Volume 90.3 fL (81-99); Mean Platelet Vol. 10.9 fl (6.2-12.0); Platelet Count 174 K/mm3 (150-450); RBC Distribution Width CV 13.3 % (11.6-14.6); RBC Distribution Width SD 43.8 fl (35.1-43.9); White Blood Count 9.6 K/mm3 (4.4-11.0)
[2020-12-18] MEDS: Acetaminophen 500 MG Tablet 1000 MG PO ×2 (06:48→12:56)
[2020-12-18 08:30] VITALS: BP 92/53; PULSE 90; RESP 18; TEMP 36.2
--- NOTE | 2020-12-18 08:31 | PN.OBGYN_ITS ---
Subjective Subjective Denies significant painfulness. She has been out of bed and ambulating without difficulty. No flatus yet. Tolerates PO without nausea or vomiting. Denies heavy lochia or swelling. She is and pumping. Objective Data Objective Data Vital Signs: Vital Signs Temp Pulse Resp BP Pulse Ox 97.1 F L 90 18 92/53 L 97 12/18/20 08:30 12/18/20 08:30 12/18/20 08:30 12/18/20 08:30 12/18/20 05:00 Oxygen Delivery Method Room Air Weight: 101.877 kg Body Mass Index (BMI) 35.2 Intake & Output: Intake and Output for Last 24 Hours 12/16/20 12/17/20 12/18/20 23:59 23:59 23:59 Intake Total 2074.17 / 2074.17 110 / 110 Output Total 550 / 550 800 / 800 Balance 1524.17 / 1524.17 -690 / -690 Lab / Micro Data Result Diagrams: 12/18/20 06:20 Labs: Laboratory Results - last 24 hr 12/18/20 06:20: WBC 9.6, RBC 3.70 L, Hgb 11.1 L, Hct 33.4 L, MCV 90.3, MCH 30.0, MCHC 33.2, RDW Std Deviation 43.8, RDW Coeff of Carmela 13.3, Plt Count 174, MPV 10.9 Micro: Microbiology 12/17/20 05:25 Mucosa - Nose SARS-CoV-2 Antigen (Rapid) - Final Physical Exam Const alert, oriented x3 and no apparent distress Resp normal respiratory effort, normal air movement and clear to auscultation bilaterally Cardio regular rate, regular rhythm, S1 normal heart sound and S2 normal heart sound GI normal to inspection, nondistended, normoactive bowel sounds, soft to palpation, non-tender and non-distended GI Narrative: incisional dressing c/d/i Manual OB Exam: other lochia scant Uterus Palpation: uterus fundus firm Extremity no calf tenderness Assessment & Plan (1) delivery delivered: COMMENT: POD#1 s/p RLTCS and b/l salpingectomy PLAN: A positive, Rubella immune Routine postoperative care Plan for d/c home when discharged from [facility]
[2020-12-18] MEDS: Ibuprofen 600 MG Tablet PO (10:16)
[2020-12-18] MEDS: Senna/Docusate Sodium 1 Tablet PO (10:17)
[2020-12-18] MEDS: Heparin Injection (Vial) 5,000 UNIT/ML VIAL 5000 UNIT SC (10:17)
--- NOTE | 2020-12-18 13:14 | PCM.DC ---
Discharge Instructions Diet Discharge Diet: No restrictions Activity Discharge Activity: Return to Normal Activity and May Shower May resume sexual activity in: 4-6 weeks Lifting Restrictions: 10 lb Dressing / Incision Call your doctor if you observe: Fever of 101 or Higher, Using more than 1 pad per hour, Shortness of breath, Chest pain, Calf discomfort, Uncontrolled pain and - (Persistent or severe headache) Suture Line Care: Avoid Pulling/Pushing Remove Dressing in: 4 days Cleanse incision/area with: Soap & Water Follow Up Care Please Follow Up With: Maria Fernanda Chung MD When: 3 weeks for telehealth visit 6 weeks for visit Test Results: Test results from this visit will be discussed in further detail at your follow-up appointment, if applicable. Discharge Plan Admission Admit Date/Time: 12/17/20 05:05 Primary Reason for Your Visit: section and tubal sterilization Attending Provider: Maria Fernanda Chung Primary Care Provider: Ezequiel Shoemaker Instructions Patient Instructions: After a Discharge Orders/Prescriptions Prescriptions: New ibuprofen 600 mg Tablet 600 mg PO Q8H PRN PRN (Reason: pain) Qty: 30 RF: 0 Continued Vitamin 1 EACH tablet 1 tab PO DAILY RF: 0 Symbicort 80-4.5 Mcg Inhaler 2 inhalation DAILY RF: 0 sertraline [Zoloft] 100 mg Tablet 100 mg PO DAILY RF: 0 Referrals / Follow Up: Ezequiel Shoemaker MD [Primary Care Provider] - Disposition Disposition (needs filled in before D/C Order can be placed): Home, Self Care
--- NOTE | 2020-12-18 13:16 | DS.PCM_ITS ---
Providers Date of Admission: 12/17/20 Primary Care Physician: Dr. Ezequiel Shoemaker MD Reason For Visit: REPEAT CSECTION Diagnosis Discharge Diagnosis (1) delivery delivered: Status: Acute Code(s): O82 - Encounter for delivery without indication Medications at Discharge Home Medications Vitamin 1 tab PO DAILY 10/28/18 Symbicort 80-4.5 Mcg Inhaler 2 INHALATION DAILY 10/28/18 sertraline [Zoloft] 100 mg PO DAILY 12/17/20 ibuprofen 600 mg PO Q8H PRN PRN #30 tab 12/18/20 Hospital Course Operations section Summary of Care Provided Hospital Course: 25 year old admitted at 40 2/7 weeks gestation for scheduled repeat section and bilateral tubal sterilization. Patient underwent an uncomplicated section with bilateral salpingectomy. Her p ostoperative course was unremarkable and she was discharged to home on post- operative day #1. Weight / BMI Weight Weight: 101.877 kg Body Mass Index (BMI) 35.2 ABG / Lab / Microbiology Data Result Diagrams: 12/18/20 06:20 Laboratory: Laboratory Results - last 24 hr 12/18/20 06:20: WBC 9.6, RBC 3.70 L, Hgb 11.1 L, Hct 33.4 L, MCV 90.3, MCH 30.0, MCHC 33.2, RDW Std Deviation 43.8, RDW Coeff of Carmela 13.3, Plt Count 174, MPV 10.9 Microbiology: Microbiology 12/17/20 05:25 Mucosa - Nose SARS-CoV-2 Antigen (Rapid) - Final D/C Instructions Discharge Diet: No restrictions May resume sexual activity in: 4-6 weeks Call your doctor if you observe: Fever of 101 or Higher, Using more than 1 pad per hour, Shortness of breath, Chest pain, Calf discomfort, Uncontrolled pain and - (Persistent or severe headache) Suture Line Care: Avoid Pulling/Pushing Cleanse incision/area with: Soap & Water Please Follow Up With: Maria Fernanda Chung MD When: 3 weeks for telehealth visit 6 weeks for visit Meaningful Use Info Meaningful Use Diagnoses (Choose all that apply): None applicable Discharge Plan Admission Admit Date/Time: 12/17/20 05:05 Primary Reason for Your Visit: section and tubal sterilization Attending Provider: Maria Fernanda Chung Primary Care Provider: Ezequiel Shoemaker Instructions Patient Instructions: After a Discharge Orders/Prescriptions Prescriptions: New ibuprofen 600 mg Tablet 600 mg PO Q8H PRN PRN (Reason: pain) Qty: 30 RF: 0 Continued Vitamin 1 EACH tablet 1 tab PO DAILY RF: 0 Symbicort 80-4.5 Mcg Inhaler 2 inhalation DAILY RF: 0 sertraline [Zoloft] 100 mg Tablet 100 mg PO DAILY RF: 0 Referrals / Follow Up: Ezequiel Shoemaker MD [Primary Care Provider] - Disposition Disposition (needs filled in before D/C Order can be placed): Home, Self Care
[2020-12-19 14:31] LABS: Pathology Specimen OB SEE PATHOLOGY REPORT
== END 2020-12-18 14:30 | disposition home or self-care (01) | DRG 539 ==
PROVIDERS: Admitting Provider Obstetrics & Gynecology; PCP Family Medicine; Referring Provider Obstetrics & Gynecology; Visit Provider Obstetrics & Gynecology
PROC: 10D00Z1 Extraction of Products of Conception, Low, Open Approach (ICD-10-PCS; CPT 59514; principal; 2020-12-17 07:15)
DX: O34.211 Maternal care for low transverse scar from previous cesarean delivery (principal); Z37.0 Single live birth; Z30.2 Encounter for sterilization; Z3A.40 40 weeks gestation of pregnancy; O62.2 Other uterine inertia
CPT/HCPCS: 85025; 85027; 86850; 86900; 86901; 87426; 88302; 99218; 99251; J7120; A4216; G0378; G0463; J2405